=== PATIENT | female | born 1935 | race American Indian/Alaskan Native ===

== ENCOUNTER 2018-11-16 04:40 | Inpatient (IN) | payer MEDICARE ==
[2018-11-16] MEDS ORDERED: NORMODYNE IV ONE ×3 (07:01→07:48)
[2018-11-16 07:45] LABS: Basophils # (Auto) 0.1 K/mm3 (0.0-0.1); Basophils % (Auto) 0.9 % (0.0-1.8); Eosinophils % (Auto) 0.2 % (0.0-4.3); Hematocrit 32.7 % (30.3-42.9); Hemoglobin 11.1 gm/dl (10.1-14.3); Lymphocytes # (Auto) 2.1 K/mm3 (1.2-5.4); Lymphocytes % (Auto) 21.2 % (13.4-35.0); Mean Corpuscular HGB Conc 34 % (30-34); Mean Corpuscular Volume 91 fl (79-97); Monocytes # (Auto) 0.8 K/mm3 (0.0-0.8); Monocytes % (Auto) 7.6 % (0.0-7.3); Platelet Count 260 K/mm3 (140-440); Red Cell Distribution Width 14.8 % (13.2-15.2)
[2018-11-16 07:57] LABS: INR 0.95 (0.87-1.13)
[2018-11-16 07:58] LABS: Partial Thromboplastin Time 21.3 Sec. (24.2-36.6)
[2018-11-16 08:00] LABS: Calcium 9.1 mg/dL (8.4-10.2)
[2018-11-16 08:03] LABS: Alanine Aminotransferase 8 units/L (7-56); Albumin 3.8 g/dL (3.9-5)
[2018-11-16 08:08] LABS: Bilirubin,Direct < 0.2 mg/dL (0-0.2)
--- NOTE | 2018-11-16 08:21 | Emergency Department Report ---
ED General Adult HPI - General Chief complaint: Headache Stated complaint: HEADACHE/NECK/BACK PAIN Time Seen by Provider: 11/16/18 06:55 Source: EMS Mode of arrival: Stretcher Limitations: Other - History of Present Illness Initial comments: This is an 83-year-old female who states that her headache has now resolved at the time of my encounter. Apparently she was on antihypertensive medication in the past but it was discontinued. The patient is a poor historian. She does not complain of neck stiffness. She is very vague about the location and onset of the headache. Apparently was present this morning and EMS was called. She denied any focal weakness or numbness. She denied fever chills nausea vomiting or neck stiffness. -: unknown Location: head Radiation: non-radiation Associated Symptoms: denies other symptoms - Related Data Allergies Allergy/AdvReac Type Severity Reaction Status Date / Time No Known Allergies Allergy Unverified 01/28/15 07:33 ED Review of Systems ROS: Stated complaint: HEADACHE/NECK/BACK PAIN Other details as noted in HPI Comment: Unobtainable due to pts medical conditions (patients with dementia who thinks she is at home) ED Past Medical Hx - Past Medical History Previous Medical History?: Yes Hx Hypertension: Yes Hx CVA: Yes (2016) Hx Heart Attack/AMI: No Hx Liver Disease: No Hx Renal Disease: No Hx Headaches / Migraines: Yes Hx Seizures: No Hx Asthma: No - Surgical History Past Surgical History?: No - Social History Smoking Status: Unknown if ever smoked Substance Use Type: None ED Physical Exam - General Limitations: Other General appearance: alert, in no apparent distress - Head Head exam: Present: atraumatic, normocephalic - Eye Eye exam: Present: normal appearance, PERRL, EOMI. Absent: scleral icterus - ENT ENT exam: Present: mucous membranes moist - Neck Neck exam: Present: normal inspection. Absent: tenderness, meningismus - Respiratory Respiratory exam: Present: normal lung sounds bilaterally. Absent: respiratory distress - Cardiovascular Cardiovascular Exam: Present: regular rate, normal rhythm. Absent: systolic murmur, diastolic murmur, rubs, gallop - GI/Abdominal GI/Abdominal exam: Present: soft, normal bowel sounds. Absent: distended, tenderness, guarding, rebound, rigid - Extremities Exam Extremities exam: Present: normal inspection - Back Exam Back exam: Present: normal inspection - Neurological Exam Neurological exam: Present: alert, oriented X3, CN II-XII intact, normal gait. Absent: motor sensory deficit - Psychiatric Psychiatric exam: Present: normal affect, normal mood - Skin Skin exam: Present: warm, dry, intact, normal color. Absent: rash ED Course Vital Signs 11/16/18 11/16/18 11/16/18 05:16 05:30 05:46 Temperature Pulse Rate 103 H 84 88 Respiratory 13 19 19 Rate Blood Pressure 260/100 Blood Pressure [Left] O2 Sat by Pulse 99 99 99 Oximetry 11/16/18 11/16/18 11/16/18 06:00 06:04 06:15 Temperature 98.4 F Pulse Rate 92 H 89 99 H Respiratory 12 22 23 Rate Blood Pressure 229/105 229/105 Blood Pressure 229/105 [Left] O2 Sat by Pulse 99 99 99 Oximetry 11/16/18 11/16/18 11/16/18 06:31 06:45 07:00 Temperature Pulse Rate 97 H 91 H 98 H Respiratory 17 21 14 Rate Blood Pressure 229/105 229/105 220/115 Blood Pressure [Left] O2 Sat by Pulse 99 99 100 Oximetry 11/16/18 11/16/18 11/16/18 07:51 08:00 08:13 Temperature Pulse Rate 94 H 97 H 89 Respiratory 18 31 H Rate Blood Pressure 229/105 221/82 201/108 Blood Pressure [Left] O2 Sat by Pulse 98 97 Oximetry 11/16/18 08:15 Temperature 98.4 F Pulse Rate 90 Respiratory 13 Rate Blood Pressure 221/82 Blood Pressure [Left] O2 Sat by Pulse 98 Oximetry - Reevaluation(s) Reevaluation #1: Patient's blood pressure gradually improved with labetalol. She did not require a trip. She was admitted by Dr. Wisdom to the hospitalist service. 11/16/18 10:46 ED Medical Decision Making - Lab Data Result diagrams: 11/16/18 07:25 11/16/18 07:31 Laboratory Results - last 24 hr 11/16/18 11/16/18 11/16/18 07:25 07:31 07:31 WBC 10.0 RBC 3.60 L Hgb 11.1 Hct 32.7 MCV 91 MCH 31 MCHC 34 RDW 14.8 Plt Count 260 Lymph % (Auto) 21.2 [place] % (Auto) 7.6 H Eos % (Auto) 0.2 Baso % (Auto) 0.9 Lymph # 2.1 [place] # 0.8 Eos # 0.0 Baso # 0.1 Seg Neutrophils % 70.1 H Seg Neutrophils # 7.0 PT INR APTT Sodium 137 Potassium 4.2 Chloride 99.6 Carbon Dioxide 21 L Anion Gap 21 BUN 17 Creatinine 1.7 H Estimated GFR 35 BUN/Creatinine Ratio 10 Glucose 132 H Calcium 9.1 Total Bilirubin 0.60 Direct Bilirubin < 0.2 Indirect Bilirubin 0.4 AST 19 ALT 8 Alkaline Phosphatase 82 Troponin T < 0.010 NT-Pro-B Natriuret Pep 1252 H Total Protein 8.1 Albumin 3.8 L Albumin/Globulin Ratio 0.9 11/16/18 07:32 WBC RBC Hgb Hct MCV MCH MCHC RDW Plt Count Lymph % (Auto) [place] % (Auto) Eos % (Auto) Baso % (Auto) Lymph # [place] # Eos # Baso # Seg Neutrophils % Seg Neutrophils # PT 13.3 INR 0.95 APTT 21.3 L Sodium Potassium Chloride Carbon Dioxide Anion Gap BUN Creatinine Estimated GFR BUN/Creatinine Ratio Glucose Calcium Total Bilirubin Direct Bilirubin Indirect Bilirubin AST ALT Alkaline Phosphatase Troponin T NT-Pro-B Natriuret Pep Total Protein Albumin Albumin/Globulin Ratio - EKG Data -: EKG Interpreted by Me EKG shows normal: sinus rhythm, axis, intervals, QRS complexes, ST-T waves Rate: normal - EKG Data Interpretation: other (motion artifact and nonspecific changes) - Radiology Data interpreted by me: Chest x-ray borderline cardiomegaly with some right hilar prominence IMPRESSION: Age related volume loss with chronic ischemic white matter disease changes. No acute stroke or hemorrhage. Remote lacunar infarcts in the deep white matter of the left frontal lobe. Very mild mucosal thickening in the ethmoid air cells. Critical care attestation.: If time is entered above; I have spent that time in minutes in the direct care of this critically ill patient, excluding procedure time. ED Disposition Clinical Impression: Accelerated hypertension Cephalalgia Qualifiers: Headache type: unspecified Headache chronicity pattern: acute headache Intractability: not intractable Qualified Code(s): R51 - Headache Disposition: OP ADMIT IP TO THIS HOSP Is pt being admited?: Yes Does the pt Need Aspirin: Yes Condition: Stable Time of Disposition: 10:49
[2018-11-16 08:43] LABS: Erythrocyte Sedimentation Rate 53 mm/Hr (0-20)
--- NOTE | 2018-11-16 08:49 | Cat Scan Report ---
PROCEDURE: CT HEAD/BRAIN WO CON TECHNIQUE: Computerized tomography of the head was performed without contrast material. CT DOSE LENGTH PRODUCT: mGycm HISTORY: Headache COMPARISONS: None . FINDINGS: Skull and scalp: Normal . Paranasal sinuses: There is patchy mucosal thickening in the ethmoid air cells. . Ventricles and subarachnoid spaces: Normal . Cerebrum: No evidence of hemorrhage, acute infarction or mass . There is diminished attenuation of t he periventricular white matter. There are remote lacunar infarcts in the deep white matter of the le ft frontal lobe. There are benign basal ganglia calcifications. Cerebellum and brainstem: No evidence of hemorrhage, acute infarction or mass . Vasculature: Normal . Other: None . ASPECTS: 10 IMPRESSION: Age related volume loss with chronic ischemic white matter disease changes. No acute stroke or hemorr celestina. Remote lacunar infarcts in the deep white matter of the left frontal lobe. Very mild mucosal thickening in the ethmoid air cells. This document is electronically signed by Jae Fang MD., November 16 2018 07:43:24 AM ET
--- NOTE | 2018-11-16 09:41 | History and Physical Report ---
History of Present Illness Date of examination: 11/16/18 Date of admission: 11/16/18 09:05 Chief complaint: Headache History of present illness: Patient is a 83 yo woman with a history of CVA in 2016, headaches, hypertension and arthritis who presents to [facility] ED with moderated to frontal constants nonradiating sharp headaches without aggravating or relieving factors. She was found to have a SBP over 220. She is a poor historian and pulled the blanket over her head. She denies cp, sob, fever or chills. She reports bilateral shoulder pains but gave no other specifics PMH: as hpi, also migraines PSH: she denies but she did have a colonoscopy after reviewing old records==01/28/15 (1. colon polyp 2. diverticulosis coli 3. internal hemorrhois) s/p Colonoscopy with hot biopsy polypectomy by Dr. Mark Narayan SH: she denies tob/etoh/illegal drug use FH: hypertension ROS: Constitutional: denies: fever ENT: denies: throat or neck pain Respiratory: denies: cough, shortness of breath Cardiovascular: denies: chest pain Endocrine: denies unexplained weight loss or gain Gastrointestinal: denies: abdominal pain, nausea Genitourinary: denies: dysuria Rectal: denies no incontinence, no bleeding, no itching, no discharge Musculoskeletal: denies swelling, +myaglia, no muscle weakness Skin: denies: rash Neurological: + headache Hematological/Lymphatic: denies: easy bleeding or easy bruising Allergic/Immunologic: no urticaria, no allergic rhinitis, no anaphylaxis Psych: denies sadness or hopelessness, SI/HI Medications and Allergies Allergies Allergy/AdvReac Type Severity Reaction Status Date / Time No Known Allergies Allergy Unverified 01/28/15 07:33 Exam - Physical Exam Narrative exam: Gen: WDWN, NAD, Awake, Alert, Orientated x 3 HEENT: NCAT, EOMI, PERRL, OP Clear Neck: supple, no adenopathy, no thyromegaly, no JVD CVS/Heart: RRR, normal S1S2, pulses present bilaterally Chest/Lungs: CTA B, Symmetrical chest expansion, good air entry bilaterally GI/Abdomen: soft, NTND, good bowel sounds, no guarding or rebound /Bladder: no suprapubic tenderness, no CVA or paraspinal tenderness Extermity/Skin: no c/c/e, no obvious rash MSK: FROM x 4 Neuro: CN 2-12 grossly intact, no new focal deficits Psych: calm - Constitutional Vitals: Temp Pulse Resp BP Pulse Ox 98.4 F 90 13 221/82 98 11/16/18 08:15 11/16/18 08:15 11/16/18 08:15 11/16/18 08:15 11/16/18 08:15 Results - Labs CBC & Chem 7: 11/16/18 07:25 11/16/18 07:31 Labs: Abnormal lab results 11/16/18 11/16/18 11/16/18 Range/Units 07:25 07:31 07:31 RBC 3.60 L (3.65-5.03) M/mm3 [place] % (Auto) 7.6 H (0.0-7.3) % Seg Neutrophils % 70.1 H (40.0-70.0) % APTT (24.2-36.6) Sec. Carbon Dioxide 21 L (22-30) mmol/L Creatinine 1.7 H (0.7-1.2) mg/dL Glucose 132 H (65-100) mg/dL NT-Pro-B Natriuret Pep 1252 H (0-900) pg/mL Albumin 3.8 L (3.9-5) g/dL 11/16/18 Range/Units 07:32 RBC (3.65-5.03) M/mm3 [place] % (Auto) (0.0-7.3) % Seg Neutrophils % (40.0-70.0) % APTT 21.3 L (24.2-36.6) Sec. Carbon Dioxide (22-30) mmol/L Creatinine (0.7-1.2) mg/dL Glucose (65-100) mg/dL NT-Pro-B Natriuret Pep (0-900) pg/mL Albumin (3.9-5) g/dL Assessment and Plan Patient is a 83 yo woman with a history of CVA in 2016, headaches, hypertension and arthritis who presents to [facility] ED with moderated to frontal constants nonradiating sharp headaches without aggravating or relieving factors. She was found to have a SBP over 220. She is a poor historian and pulled the blanket over her head. She denies cp, sob, fever or chills. She reports bilateral should er pains but gave no other specifics. * CT head without contrast IMPRESSION: Age related volume loss with chronic ischemic white matter disease changes. No acute stroke or hemorrhage. Remote lacunar infarcts in the deep white matter of the left frontal lobe. Very mild mucosal thickening in the ethmoid air cells. -Malignant hypertension: treat with iv antihypertensive, after school counselor on adherence -Headache, possible Migraine flare: Consult neurology, treat with Ibuprofen x 1 -H/o CVA: treat with ASA, statin and get lipid panel -OA: treat with Tylenol
[2018-11-16] MEDS ORDERED: TYLENOL PO PRN (09:47)
[2018-11-16] MEDS ORDERED: NORCO 10/325 PO PRN (09:47)
[2018-11-16] MEDS ORDERED: APRESOLINE IV PRN (09:47)
[2018-11-16] MEDS ORDERED: NORMODYNE IV PRN (09:47)
[2018-11-16] MEDS ORDERED: ZOFRAN IV PRN (09:47)
[2018-11-16] MEDS ORDERED: MORPHINE IV PRN (09:47)
[2018-11-16] MEDS ORDERED: AMBIEN PO PRN (09:47)
[2018-11-16] MEDS ORDERED: IBUPROFEN PO ONE (10:00)
[2018-11-16] MEDS ORDERED: ASPIRIN ONE (11:39)
[2018-11-16] MEDS ORDERED: PROTONIX PO ONE (11:39)
[2018-11-16] MEDS ORDERED: ZESTRIL ONE (11:39)
[2018-11-16] MEDS ORDERED: IBUPROFEN ONE (11:39)
[2018-11-16] MEDS ORDERED: NORVASC ONE (11:40)
[2018-11-16] MEDS ORDERED: APRESOLINE ONE (11:40)
[2018-11-16] MEDS: ASPIRIN PO SCH (11:43)
[2018-11-16] MEDS: NORVASC PO SCH (11:43)
[2018-11-16] MEDS: ZESTRIL PO SCH (11:44)
[2018-11-16] MEDS: PROTONIX PO SCH (11:44)
--- NOTE | 2018-11-16 11:49 | XRay Report ---
PROCEDURE: XR CHEST 1V AP TECHNIQUE: Chest, portable HISTORY: hypertension COMPARISON: None FINDINGS: The heart size is borderline enlarged. There is no pulmonary vascular congestion seen. Lungs are clear. There is no pleural effusion seen. There is no pneumothorax seen. IMPRESSION: No acute abnormality identified. This document is electronically signed by Rosana Bowles MD., November 16 2018 09:51:48 AM ET
--- NOTE | 2018-11-16 13:58 | Progress Note ---
Subjective Date of service: 11/16/18 Interval history: patient with devere headaches and HTN she is up and ambulatory headaches are chronic problems plan check to exclude temporal arteriitis see prir w/u will follow up Thanks Objective - Vital Sign Vital Signs - 12hr 11/16/18 11/16/18 11/16/18 05:16 05:30 05:46 Temperature Pulse Rate 103 H 84 88 Respiratory 13 19 19 Rate Blood Pressure 260/100 Blood Pressure [Left] O2 Sat by Pulse 99 99 99 Oximetry 11/16/18 11/16/18 11/16/18 06:00 06:04 06:15 Temperature 98.4 F Pulse Rate 92 H 89 99 H Respiratory 12 22 23 Rate Blood Pressure 229/105 229/105 Blood Pressure 229/105 [Left] O2 Sat by Pulse 99 99 99 Oximetry 11/16/18 11/16/18 11/16/18 06:31 06:45 07:00 Temperature Pulse Rate 97 H 91 H 98 H Respiratory 17 21 14 Rate Blood Pressure 229/105 229/105 220/115 Blood Pressure [Left] O2 Sat by Pulse 99 99 100 Oximetry 11/16/18 11/16/18 11/16/18 07:51 08:00 08:13 Temperature Pulse Rate 94 H 97 H 89 Respiratory 18 31 H Rate Blood Pressure 229/105 221/82 201/108 Blood Pressure [Left] O2 Sat by Pulse 98 97 Oximetry 11/16/18 11/16/18 11/16/18 08:15 08:33 08:45 Temperature 98.4 F Pulse Rate 90 87 Respiratory 13 20 Rate Blood Pressure 221/82 141/106 209/89 Blood Pressure [Left] O2 Sat by Pulse 98 96 100 Oximetry 11/16/18 11/16/18 11/16/18 09:00 09:15 09:31 Temperature Pulse Rate 86 87 89 Respiratory 22 23 13 Rate Blood Pressure 215/85 209/89 209/89 Blood Pressure [Left] O2 Sat by Pulse 99 98 98 Oximetry 11/16/18 11/16/18 11/16/18 09:45 10:01 10:16 Temperature Pulse Rate 88 87 Respiratory 19 20 Rate Blood Pressure 215/85 224/77 224/77 Blood Pressure [Left] O2 Sat by Pulse 97 97 85 Oximetry 11/16/18 11/16/18 11/16/18 10:31 10:45 11:00 Temperature Pulse Rate 94 H 92 H 93 H Respiratory 26 H 22 22 Rate Blood Pressure 194/159 194/159 230/94 Blood Pressure [Left] O2 Sat by Pulse 91 99 Oximetry 11/16/18 11/16/18 11/16/18 11:15 11:21 11:43 Temperature 98 F Pulse Rate 92 H 91 H 92 H Respiratory 21 18 16 Rate Blood Pressure 230/94 230/94 Blood Pressure 229/94 [Left] O2 Sat by Pulse 98 98 Oximetry 11/16/18 11:44 Temperature Pulse Rate 92 H Respiratory Rate Blood Pressure 230/94 Blood Pressure [Left] O2 Sat by Pulse Oximetry - Laboratory Findings CBC and BMP: 11/16/18 07:25 11/16/18 07:31 Abnormal Lab Findings: Abnormal Labs 11/16/18 11/16/18 11/16/18 07:25 07:31 07:31 RBC 3.60 L [place] % (Auto) 7.6 H Seg Neutrophils % 70.1 H APTT Carbon Dioxide 21 L Creatinine 1.7 H Glucose 132 H NT-Pro-B Natriuret Pep 1252 H Albumin 3.8 L 11/16/18 07:32 RBC [place] % (Auto) Seg Neutrophils % APTT 21.3 L Carbon Dioxide Creatinine Glucose NT-Pro-B Natriuret Pep Albumin
[2018-11-17 06:41] LABS: Hematocrit 32.2 % (30.3-42.9); Hemoglobin 10.8 gm/dl (10.1-14.3); Mean Corpuscular HGB Conc 33 % (30-34); Mean Corpuscular Volume 91 fl (79-97); Platelet Count 263 K/mm3 (140-440); Red Blood Count 3.54 M/mm3 (3.65-5.03)
[2018-11-17 06:52] LABS: Calcium 9.3 mg/dL (8.4-10.2); Chol/HDL Ratio 2.9 %
--- NOTE | 2018-11-17 09:59 | Progress Note ---
Assessment and Plan Assessment and plan: Patient is a 83 yo woman with a history of CVA in 2016, headaches, hypertension and arthritis who presents to [facility] ED with moderated to frontal constants nonradiating sharp headaches without aggravating or relieving factors. She was found to have a SBP over 220. She is a poor historian and pulled the blanket over her head. She denies cp, sob, fever or chills. She reports bilateral shoulder pains but gave no other specifics. * CT head without contrast IMPRESSION: Age related volume loss with chronic i schemic white matter disease changes. No acute stroke or hemorrhage. Remote lacunar infarcts in the deep white matter of the left frontal lobe. Very mild mucosal thickening in the ethmoid air cells. -Malignant hypertension: treat with iv antihypertensive, prevocational/rehabilitation counselor on adherence -Headache, possible Migraine flare: Consult neurology, treated with Ibuprofen x 1 -H/o CVA: treat with ASA, statin and get lipid panel -OA: treat with Tylenol -Disposition: continue inpatient care, ready to discharge but patient states that she has been put out and she can't go back to her daughter's home and I called Case management x [phone] no answer and I called Intelligence Research Specialist. History Interval history: Patient was seen and examined. Follow-up on current diagnosis of uncontrolled hypertension. Overnight uneventful. Patient denies any chest pain, shortness breath, nausea/vomiting or severe headaches. Imaging, nursing note, chart, labs and old chart reviewed. Discussed with patient. Hospitalist Physical - Physical exam Narrative exam: Gen: WDWN, NAD, Awake, Alert, Orientated x 3 HEENT: NCAT, EOMI, PERRL, OP Clear Neck: supple, no adenopathy, no thyromegaly, no JVD CVS/Heart: RRR, normal S1S2, pulses present bilaterally Chest/Lungs: CTA B, Symmetrical chest expansion, good air entry bilaterally GI/Abdomen: soft, NTND, good bowel sounds, no guarding or rebound /Bladder: no suprapubic tenderness, no CVA or paraspinal tenderness Extermity/Skin: no c/c/e, no obvious rash MSK: FROM x 4 Neuro: CN 2-12 grossly intact, no new focal deficits Psych: calm - Constitutional Vitals: Temp Pulse Resp BP Pulse Ox 98.4 F 82 16 150/61 90 11/17/18 07:41 11/17/18 07:41 11/17/18 07:41 11/17/18 07:41 11/17/18 07:41 Results - Labs CBC & Chem 7: 11/17/18 04:19 11/17/18 04:19 Labs: Laboratory Last Values WBC 9.9 K/mm3 (4.5-11.0) 11/17/18 04:19 RBC 3.54 M/mm3 (3.65-5.03) L 11/17/18 04:19 Hgb 10.8 gm/dl (10.1-14.3) 11/17/18 04:19 Hct 32.2 % (30.3-42.9) 11/17/18 04:19 MCV 91 fl (79-97) 11/17/18 04:19 MCH 30 pg (28-32) 11/17/18 04:19 MCHC 33 % (30-34) 11/17/18 04:19 RDW 15.0 % (13.2-15.2) 11/17/18 04:19 Plt Count 263 K/mm3 (140-440) 11/17/18 04:19 Lymph % (Auto) 21.2 % (13.4-35.0) 11/16/18 07:25 [place] % (Auto) 7.6 % (0.0-7.3) H 11/16/18 07:25 Eos % (Auto) 0.2 % (0.0-4.3) 11/16/18 07:25 Baso % (Auto) 0.9 % (0.0-1.8) 11/16/18 07:25 Lymph # 2.1 K/mm3 (1.2-5.4) 11/16/18 07:25 [place] # 0.8 K/mm3 (0.0-0.8) 11/16/18 07:25 Eos # 0.0 K/mm3 (0.0-0.4) 11/16/18 07:25 Baso # 0.1 K/mm3 (0.0-0.1) 11/16/18 07:25 Seg Neutrophils % 70.1 % (40.0-70.0) H 11/16/18 07:25 Seg Neutrophils # 7.0 K/mm3 (1.8-7.7) 11/16/18 07:25 ESR 8 mm/Hr (0-20) 11/16/18 14:11 PT 13.3 Sec. (12.2-14.9) 11/16/18 07:32 INR 0.95 (0.87-1.13) 11/16/18 07:32 APTT 21.3 Sec. (24.2-36.6) L 11/16/18 07:32 Sodium 138 mmol/L (137-145) 11/17/18 04:19 Potassium 3.5 mmol/L (3.6-5.0) L 11/17/18 04:19 Chloride 98.7 mmol/L (98-107) 11/17/18 04:19 Carbon Dioxide 22 mmol/L (22-30) 11/17/18 04:19 Anion Gap 21 mmol/L 11/17/18 04:19 BUN 23 mg/dL (7-17) H 11/17/18 04:19 Creatinine 2.3 mg/dL (0.7-1.2) H 11/17/18 04:19 Estimated GFR 25 ml/min 11/17/18 04:19 BUN/Creatinine Ratio 10 % 11/17/18 04:19 Glucose 109 mg/dL (65-100) H 11/17/18 04:19 Calcium 9.3 mg/dL (8.4-10.2) 11/17/18 04:19 Total Bilirubin 0.60 mg/dL (0.1-1.2) 11/16/18 07:31 Direct Bilirubin < 0.2 mg/dL (0-0.2) 11/16/18 07:31 Indirect Bilirubin 0.4 mg/dL 11/16/18 07:31 AST 19 units/L (5-40) 11/16/18 07:31 ALT 8 units/L (7-56) 11/16/18 07:31 Alkaline Phosphatase 82 units/L (35-129) 11/16/18 07:31 Troponin T < 0.010 ng/mL (0.00-0.029) 11/16/18 07:31 NT-Pro-B Natriuret Pep 1252 pg/mL (0-900) H 11/16/18 07:31 Total Protein 8.1 g/dL (6.3-8.2) 11/16/18 07:31 Albumin 3.8 g/dL (3.9-5) L 11/16/18 07:31 Albumin/Globulin Ratio 0.9 % 11/16/18 07:31 Triglycerides 68 mg/dL (2-149) 11/17/18 04:19 Cholesterol 145 mg/dL (50-199) 11/17/18 04:19 LDL Cholesterol Direct 87 mg/dL (50-130) 11/17/18 04:19 HDL Cholesterol 50 mg/dL (40-59) 11/17/18 04:19 Cholesterol/HDL Ratio 2.90 % 11/17/18 04:19 TSH 3.820 mlU/mL (0.270-4.200) 11/17/18 04:19
[2018-11-17] MEDS: ZESTRIL PO SCH (10:00)
--- NOTE | 2018-11-17 10:13 | Discharge Summary ---
Providers - Providers Date of Admission: 11/16/18 09:05 Date of discharge: 11/18/18 Attending physician: UCHE FREIRE 11/16/18 09:45 Consult to Physician [CONS] Routine Comment: Consulting Provider: GRACE GIBSON Physician Instructions: Reason For Exam: Headaches 11/17/18 10:08 Consult to Case Management [CONS] Routine Services Needed at Discharge: Learning Manager Additional Physician Instructions: Primary care physician: BRUCE SAUCEDO Hospitalization Condition: Stable Hospital course: Patient is a 83 yo woman with a history of CVA in 2016, headaches, hypertension and arthritis who presents to [facility] ED with moderated to frontal constants nonradiating sharp headaches without aggravating or relieving factors. She was found to have a SBP over 220. She is a poor historian and pulled the blanket over her head. She denies cp, sob, fever or chills. She reports bilateral shoulder pains but gave no other specifics. * CT head without contrast IMPRESSION: Age related volume loss with chronic ischemic white matter disease changes. No acute stroke or hemorrhage. Remote lacunar infarcts in the deep white matter of the left frontal lobe. Very mild mucosal thickening in the ethmoid air cells. -Malignant hypertension: treat with iv antihypertensive, licensed mental health counselor on adherence -Headache, possible Migraine flare: Consult neurology, treated with Ibuprofen x 1 -H/o CVA: treat with ASA, statin and get lipid panel -OA: treat with Tylenol Disposition: DC-01 TO HOME OR SELFCARE Time spent for discharge: 36 minutes Core Measure Documentation - Palliative Care Palliative Care/ Comfort Measures: Not Applicable - Core Measures Any of the following diagnoses?: none - VTE Discharge Requirements Deep Vein Thrombosis/Pulmonary Embolism Present on Admission: No Has pt received <5 days of overlap therapy or INR<2.0: No Anticoagulant overlap therapy prescribed at discharge: No Contraindication No Overlap Therapy order at DC: Not Indicated Exam - Physical Exam Narrative exam: Gen: WDWN, NAD, Awake, Alert, Orientated x 3 HEENT: NCAT, EOMI, PERRL, OP Clear Neck: supple, no adenopathy, no thyromegaly, no JVD CVS/Heart: RRR, normal S1S2, pulses present bilaterally Chest/Lungs: CTA B, Symmetrical chest expansion, good air entry bilaterally GI/Abdomen: soft, NTND, good bowel sounds, no guarding or rebound /Bladder: no suprapubic tenderness, no CVA or paraspinal tenderness Extermity/Skin: no c/c/e, no obvious rash MSK: FROM x 4 Neuro: CN 2-12 grossly intact, no new focal deficits Psych: calm - Constitutional Vitals: Temp Pulse Resp BP Pulse Ox 98.4 F 82 16 150/61 90 11/17/18 07:41 11/17/18 07:41 11/17/18 07:41 11/17/18 07:41 11/17/18 07:41 Plan Activity: other (no strenous activity) Diet: low salt Special Instructions: record daily BP diary Follow up with: BRUCE SAUCEDO MD [Primary Care Provider] - 3-5 Days Prescriptions: amLODIPine [Norvasc] 10 mg PO QDAY #30 tablet Aspirin [Aspirin EC] 81 mg PO QDAY #30 tab Pantoprazole [Protonix TAB] 40 mg PO QDAY #30 tablet
--- NOTE | 2018-11-17 10:24 | Progress Note ---
Subjective Date of service: 11/17/18 Interval history: OK to discharge ESR is normal for age and being female the headaches are related to HTN and Renal FAILURE Objective - Vital Sign Vital Signs - 12hr 11/17/18 11/17/18 11/17/18 02:03 07:13 07:41 Temperature 98.3 F 98.1 F 98.4 F Pulse Rate 87 90 82 Respiratory 20 18 16 Rate Blood Pressure 171/58 168/61 150/61 O2 Sat by Pulse 96 98 90 Oximetry - Laboratory Findings CBC and BMP: 11/17/18 04:19 11/17/18 04:19 Abnormal Lab Findings: Abnormal Labs 11/16/18 11/16/18 11/16/18 07:25 07:31 07:31 RBC 3.60 L [place] % (Auto) 7.6 H Seg Neutrophils % 70.1 H APTT Potassium Carbon Dioxide 21 L BUN Creatinine 1.7 H Glucose 132 H NT-Pro-B Natriuret Pep 1252 H Albumin 3.8 L 11/16/18 11/17/18 11/17/18 07:32 04:19 04:19 RBC 3.54 L [place] % (Auto) Seg Neutrophils % APTT 21.3 L Potassium 3.5 L Carbon Dioxide BUN 23 H Creatinine 2.3 H Glucose 109 H NT-Pro-B Natriuret Pep Albumin
[2018-11-17] MEDS: PROTONIX PO SCH (10:56)
[2018-11-17] MEDS: ASPIRIN PO SCH (10:56)
[2018-11-17] MEDS: NORVASC PO SCH (10:57)
[2018-11-17] MEDS: HEPARIN SUB-Q SCH ×3 (10:57→22:55)
[2018-11-17] MEDS ORDERED: AFLURIA QUAD 2018-2019 SYRINGE IM ONE (12:00)
[2018-11-17] MEDS ORDERED: PNEUMOVAX 23 IM ONE (12:00)
[2018-11-17 12:28] LABS: Bacteria,Urine 1+ /HPF (Negative); Bilirubin,Urine NEG (Negative); Blood,Urine NEG (Negative); Color,Urine Yellow (Yellow); Hyaline Casts,Urine 1 /LPF; Mucus,Urine FEW /HPF; Protein,Urine <15 mg/dL mg/dL (Negative)
[2018-11-17] MEDS ORDERED: NACL 0.9% 1000 ML 1,000 ML IV ONE (13:59)
--- NOTE | 2018-11-17 14:05 | Consultation ---
History of Present Illness - Reason for Consult Consult date: 11/17/18 acute renal failure - History of Present Illness patient is a 83 year old female with HTN was admitted for worsening SHARPE, she was doing to have severely elevated BP and was started on IV BP meds, CT head was negative for acute process, she was evaluated by neurology and etiology of her SHARPE likely related to BP, this morning she was found to have worsening Cr and renal consult was requested Past History Past Medical History: hypertension Medications and Allergies Allergies Allergy/AdvReac Type Severity Reaction Status Date / Time No Known Allergies Allergy Unverified 01/28/15 07:33 Home Medications Medication Instructions Recorded Confirmed Last Taken Type Acetaminophen [Acetaminophen TAB] 650 mg PO Q6H PRN #15 tablet 11/17/18 Unknown Rx Aspirin [Aspirin EC] 81 mg PO QDAY #30 tab 11/17/18 Unknown Rx Pantoprazole [Protonix TAB] 40 mg PO QDAY #30 tablet 11/17/18 Unknown Rx amLODIPine [Norvasc] 10 mg PO QDAY #30 tablet 11/17/18 Unknown Rx Active Meds: Active Medications Acetaminophen (Tylenol) 650 mg PO Q6H PRN PRN Reason: Non Cardiac Pain or Temp>100.5 Acetaminophen/Hydrocodone Bitart ([place] 10/325) 1 each PO Q4H PRN PRN Reason: Pain , Severe (7-10) Amlodipine Besylate (Norvasc) 10 mg PO QDAY [facility] Last Admin: 11/17/18 10:57 Dose: 10 mg Documented by: Aspirin (Aspirin) 325 mg PO QDAY [facility] Last Admin: 11/17/18 10:56 Dose: 325 mg Documented by: Atorvastatin Calcium (Lipitor) 40 mg PO QHS [facility] Last Admin: 11/16/18 22:42 Dose: 40 mg Documented by: Heparin Sodium (Porcine) (Heparin) 5,000 unit SUB-Q Q12HR [facility] Last Admin: 11/17/18 13:08 Dose: Not Given Documented by: Hydralazine HCl (Apresoline) 10 mg IV Q4HR PRN PRN Reason: Blood Pressure Last Admin: 11/16/18 11:44 Dose: 10 mg Documented by: Sodium Chloride (Nacl 0.9% 1000 Ml) 1,000 mls @ 50 mls/hr IV ONCE ONE Stop: 11/18/18 09:58 Labetalol HCl (Normodyne) 10 mg IV Q4H PRN PRN Reason: Blood Pressure Morphine Sulfate (Morphine) 2 mg IV Q4H PRN PRN Reason: Pain , Severe (7-10) Ondansetron HCl (Zofran) 4 mg IV Q4H PRN PRN Reason: Nausea And Vomiting Pantoprazole Sodium (Protonix) 40 mg PO QDAY ROBE Last Admin: 11/17/18 10:56 Dose: 40 mg Documented by: Zolpidem Tartrate (Ambien) 5 mg PO QHS PRN PRN Reason: Sleep Review of Systems All systems: negative (SHARPE) Exam - Vital Signs Vital signs: Vital Signs Pulse Resp Pulse Ox 103 H 13 99 11/16/18 05:16 11/16/18 05:16 11/16/18 05:16 - General Appearance General appearance: well-developed, well-nourished, appears stated age EENT: ATNC, PERRL, mucous membranes moist Neck: Present: neck supple Respiratory: Clear to Ascultation Heart: regular, S1S2 Gastrointestinal: Present: normoactive bowel sounds Integumentary: no rash, warm and dry Neurologic: no focal deficit, no asterixis, alert and oriented x3 Musculoskeletal: Present: deferred, other (no edema in BLE) Psychiatric: mood/affect appropriate, cooperative Results - Lab Results 11/17/18 04:19 11/17/18 04:19 Most recent lab results Calcium 9.3 mg/dL (8.4-10.2) 11/17/18 04:19 Assessment and Plan TON, possibly due to NSAIDs and ACEI,c cannot r/o endovascular injury secondary to hypertension emergency HTN headaches - agree with holding ACEI - will start gentle IVF NS 50 cc/h - urine studies ordered - if improvement in Cr tomorrow can be discharged and she will be followed in my office
--- NOTE | 2018-11-17 15:03 | Ultrasound Report ---
PROCEDURE: US RENAL BILAT TECHNIQUE: Longitudinal and transverse grayscale sonographic images of the kidneys HISTORY: ARF COMPARISONS: None FINDINGS: Right kidney measures 6.8 cm and contains a lower pole 2.4 x 2.4 cm cyst. Cortex measures 0.9 cm. Left kidney measures 8.5 cm with 1.7 cm cortical thickness. Both kidneys are echogenic with relatively poor corticomedullary junction differentiation. Left is mo re severe than the right. No hydronephrosis. Urinary bladder is not assessed. IMPRESSION: Echogenic small kidneys bilaterally most compatible with medical renal disease. No stone, hydronephro sis, or mass. Simple right lower pole cortical exophytic cyst. Bladder is not assessed.. This document is electronically signed by Lorie Avila MD., November 17 2018 03:01:38 PM ET
[2018-11-17 18:08] LABS: Bilirubin,Urine NEG (Negative); Blood,Urine SM (Negative); Color,Urine Yellow (Yellow); Protein,Urine <15 mg/dL mg/dL (Negative)
[2018-11-17 18:22] LABS: Creatinine,Urine 139.1 mg/dL (0.1-20.0); Protein/Creatinine Ratio,Urine 0.12
--- NOTE | 2018-11-17 21:19 | Consultation ---
HISTORY OF PRESENT ILLNESS: This is an 83-year-old female who is being asked to be seen for evaluation of headaches, vertigo, and generalized weakness. The patient has a long history of hypertension, had been missing her medication recently. By her admission, she was not taking medication prior to admission. Blood pressure became elevated, she got dizzy, had pain across her forehead, bilateral, nonpulsatile, nonthrobbing and not associated with any vertigo or loss of vision. These headaches have been present previously when she has had elevated blood pressure. She denies having had a stroke or any other symptoms of a similar nature in the past. PAST MEDICAL HISTORY: Not significant for any strokes. She does have a prior medical history of hypertension. SOCIAL HISTORY: Denies smoking, denies drinking. The patient initially was assessed. Nurses were present in the room, stated that she was up and ambulating without difficulty. RADIOLOGICAL DATA: Review of her CT scan of the head shows old area of calcification bilaterally in the globus pallidus, which has a punctate appearance to it, somewhat characteristic for degenerative changes and the remainder of the ventricular system is normal for her age. 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 There are scattered white matter changes as well. They are suggestive lacunar disease. PHYSICAL EXAMINATION: NEUROLOGIC: The patient reveals him to be alert. She is up walking. Cranial nerves are intact 2-12. Reflexes symmetrical. Gait normal. No cerebellar signs are present. Palpation of the head and neck and scalp is unremarkable. No evidence of any skin eruptions are present over the head, neck, scalp. IMPRESSION: Headaches related to hypertension, evidence of hypertensive lacunar disease on the CT scan, which is very minimal and quite expected at her current age. The patient's headaches are not at all characteristic of temporal arteritis. Sedimentation rate that I have obtained is 53, which is normal for her age and sex. I feel that blood pressure control is appropriate. She should also receive risk factor reduction of potential for stroke with blood pressure control. Recommendation low dose aspirin and statin. The patient is advised to follow up with her family medical doctor. JOB# [id number] LOI/NTS
[2018-11-18 05:37] LABS: Basophils # (Auto) 0.1 K/mm3 (0.0-0.1); Basophils % (Auto) 0.6 % (0.0-1.8); Eosinophils % (Auto) 0.4 % (0.0-4.3); Hematocrit 28.5 % (30.3-42.9); Hemoglobin 9.7 gm/dl (10.1-14.3); Lymphocytes # (Auto) 1.8 K/mm3 (1.2-5.4); Lymphocytes % (Auto) 21.6 % (13.4-35.0); Mean Corpuscular HGB Conc 34 % (30-34); Mean Corpuscular Volume 90 fl (79-97); Monocytes # (Auto) 0.7 K/mm3 (0.0-0.8); Monocytes % (Auto) 8.8 % (0.0-7.3); Platelet Count 242 K/mm3 (140-440); Red Blood Count 3.19 M/mm3 (3.65-5.03); Red Cell Distribution Width 15.1 % (13.2-15.2)
[2018-11-18 05:57] LABS: Calcium 8.8 mg/dL (8.4-10.2)
[2018-11-18 07:43] LABS: Calcium 8.8 mg/dL (8.4-10.2)
--- NOTE | 2018-11-18 08:07 | Progress Note ---
Subjective Date of service: 11/18/18 Interval history: Hmct low and BP still up slightly meds are being ordered headaches could as well be renal related as creatinine is increased Objective - Vital Sign Vital Signs - 12hr 11/17/18 11/17/18 11/17/18 22:00 22:54 23:54 Temperature Pulse Rate 92 H Respiratory 20 20 20 Rate Blood Pressure O2 Sat by Pulse 95 Oximetry 11/18/18 01:58 Temperature 98.6 F Pulse Rate Respiratory 20 Rate Blood Pressure 162/59 O2 Sat by Pulse Oximetry - Laboratory Findings CBC and BMP: 11/18/18 05:12 11/18/18 06:51 Abnormal Lab Findings: Abnormal Labs 11/16/18 11/16/18 11/16/18 07:25 07:31 07:31 RBC 3.60 L Hgb Hct [place] % (Auto) 7.6 H Seg Neutrophils % 70.1 H APTT Potassium Carbon Dioxide 21 L BUN Creatinine 1.7 H Glucose 132 H NT-Pro-B Natriuret Pep 1252 H Albumin 3.8 L Urine WBC (Auto) Urine Creatinine Urine Total Protein 11/16/18 11/16/18 11/17/18 07:32 Unknown 04:19 RBC 3.54 L Hgb Hct [place] % (Auto) Seg Neutrophils % APTT 21.3 L Potassium Carbon Dioxide BUN Creatinine Glucose NT-Pro-B Natriuret Pep Albumin Urine WBC (Auto) 8.0 H Urine Creatinine Urine Total Protein 11/17/18 11/17/18 11/18/18 04:19 17:45 05:12 RBC 3.19 L Hgb 9.7 L Hct 28.5 L [place] % (Auto) 8.8 H Seg Neutrophils % APTT Potassium 3.5 L Carbon Dioxide BUN 23 H Creatinine 2.3 H Glucose 109 H NT-Pro-B Natriuret Pep Albumin Urine WBC (Auto) Urine Creatinine 139.1 H Urine Total Protein 16 H 11/18/18 11/18/18 05:12 06:51 RBC Hgb Hct [place] % (Auto) Seg Neutrophils % APTT Potassium Carbon Dioxide BUN 27 H 26 H Creatinine 2.2 H 2.2 H Glucose 104 H NT-Pro-B Natriuret Pep Albumin Urine WBC (Auto) Urine Creatinine Urine Total Protein
[2018-11-18] MEDS: NORVASC PO SCH (09:06)
[2018-11-18] MEDS: ASPIRIN PO SCH (09:06)
[2018-11-18] MEDS: HEPARIN SUB-Q SCH (09:07)
[2018-11-18] MEDS: PROTONIX PO SCH (09:07)
--- NOTE | 2018-11-18 11:58 | Progress Note ---
Assessment and Plan TON, possibly due to NSAIDs and ACEI,c cannot r/o endovascular injury secondary to hypertension emergency HTN headaches - stable Cr but not back to baseline yet - Ok to be discharged from renal standpoint, cont to hold ACEI on discharge, to be followed in my office with labs within 1-2 weeks Sivakumar Singh MD [phone] Subjective Date of service: 11/18/18 Principal diagnosis: acute renal failure Interval history: SHARPE resolved, ready to go home Objective - Vital Signs Vital signs: Vital Signs - 12hr 11/18/18 11/18/18 11/18/18 01:58 08:14 09:06 Temperature 98.6 F 98.5 F Pulse Rate 93 H 98 H Pulse Rate [ Apical] Respiratory 20 18 Rate Blood Pressure 162/59 186/61 179/72 O2 Sat by Pulse 97 Oximetry 11/18/18 10:00 Temperature Pulse Rate 96 H Pulse Rate [ 96 H Apical] Respiratory Rate Blood Pressure O2 Sat by Pulse 97 Oximetry - General Appearance General appearance: well-developed, well-nourished, appears stated age EENT: ATNC, PERRL, mucous membranes moist Neck: no JVD, no carotid bruit Respiratory: Present: Clear to Ascultation. Absent: Rales, [place] Cardiology: regular, S1S2 Gastrointestinal: normoactive bowel sounds, no tenderness, no distended Integumentary: no rash, warm and dry Neurologic: no focal deficit, no asterixis, alert and oriented x3 Musculoskeletal: other (no edema in BLE) Psychiatric: mood/affect appropriate, cooperative - Lab 11/18/18 05:12 11/18/18 06:51 Most recent lab results Calcium 8.8 mg/dL (8.4-10.2) 11/18/18 06:51 Urine Creatinine 139.1 mg/dL (0.1-20.0) H 11/17/18 17:45 Urine Sodium 30 mmol/L 11/17/18 17:45 Urine Total Protein 16 mg/dL (5-11.8) H 11/17/18 17:45 Medications & Allergies - Medications Allergies/Adverse Reactions: Allergies No Known Allergies Allergy (Unverified 01/28/15 07:33) Home Medications: Home Medications Medication Instructions Recorded Confirmed Last Taken Type Acetaminophen [Acetaminophen TAB] 650 mg PO Q6H PRN #15 tablet 11/17/18 Unknown Rx Aspirin [Aspirin EC] 81 mg PO QDAY #30 tab 11/17/18 Unknown Rx Pantoprazole [Protonix TAB] 40 mg PO QDAY #30 tablet 11/17/18 Unknown Rx amLODIPine [Norvasc] 10 mg PO QDAY #30 tablet 11/17/18 Unknown Rx Active Medications: Generic Name Dose Route Start Last Admin Trade Name Freq PRN Reason Stop Dose Admin Acetaminophen 650 mg 11/16/18 09:47 Tylenol PO Q6H PRN Non Cardiac Pain or Temp>100.5 Acetaminophen/Hydrocodone Bitart 1 each 11/16/18 09:47 11/17/18 22:54 [place] 10/325 PO 1 each Q4H PRN Administration Pain , Severe (7-10) Amlodipine Besylate 10 mg 11/16/18 10:00 11/18/18 09:06 Norvasc PO 10 mg QDAY ROBE Administration Aspirin 325 mg 11/16/18 10:00 11/18/18 09:06 Aspirin PO 325 mg QDAY ROBE Administration Atorvastatin Calcium 40 mg 11/16/18 22:00 11/17/18 22:54 Lipitor PO 40 mg QHS ROBE Administration Heparin Sodium (Porcine) 5,000 unit 11/17/18 09:47 11/18/18 09:07 Heparin SUB-Q 5,000 unit Q12HR ROBE Administration Hydralazine HCl 10 mg 11/16/18 09:47 11/16/18 11:44 Apresoline IV 10 mg Q4HR PRN Administration Blood Pressure Labetalol HCl 10 mg 11/16/18 09:47 Normodyne IV Q4H PRN Blood Pressure Morphine Sulfate 2 mg 11/16/18 09:47 11/17/18 15:49 Morphine IV 2 mg Q4H PRN Administration Pain , Severe (7-10) Ondansetron HCl 4 mg 11/16/18 09:47 Zofran IV Q4H PRN Nausea And Vomiting Pantoprazole Sodium 40 mg 11/16/18 10:00 11/18/18 09:07 Protonix PO 40 mg QDAY ROBE Administration Zolpidem Tartrate 5 mg 11/16/18 09:47 11/17/18 22:54 Ambien PO 5 mg QHS PRN Administration Sleep
[2018-11-18 15:00] VITALS: BP 175/68
== END 2018-11-18 16:06 | disposition home health service (06) | DRG 304 ==
LOC: ED 04:40 → 2B-ACE 09:05
PROVIDERS: ADMIT Internal Medicine; ATTEND Internal Medicine
DX: I16.1 Hypertensive emergency (principal); N17.0 Acute kidney failure with tubular necrosis; I10 Essential (primary) hypertension; Z86.73 Personal history of transient ischemic attack (TIA), and cerebral infarction without residual deficits; M19.90 Unspecified osteoarthritis, unspecified site; G43.909 Migraine, unspecified, not intractable, without status migrainosus; Z82.49 Family history of ischemic heart disease and other diseases of the circulatory system; Z23 Encounter for immunization
CPT/HCPCS: 36415; 70450; 71045; 76770; 80048; 80061; 80076; 81001; 82570; 82607; 82747; 83880; 84156; 84300; 84443; 84484; 84520; 85025; 85027; 85610; 85652; 85730; 90686; 90732; 93005; 93010; G0378; A9270-GY; J0360; J1644; J2270; J7030

== ENCOUNTER 2018-11-19 08:43 | Emergency (ER) | payer MEDICARE ==
[2018-11-19] MEDS ORDERED: CATAPRES PO ONE (09:21)
[2018-11-19 09:42] LABS: Basophils # (Auto) 0.1 K/mm3 (0.0-0.1); Basophils % (Auto) 0.6 % (0.0-1.8); Eosinophils # (Auto) 0.1 K/mm3 (0.0-0.4); Eosinophils % (Auto) 0.6 % (0.0-4.3); Hematocrit 32.9 % (30.3-42.9); Hemoglobin 10.9 gm/dl (10.1-14.3); Lymphocytes # (Auto) 1.3 K/mm3 (1.2-5.4); Lymphocytes % (Auto) 12.2 % (13.4-35.0); Mean Corpuscular HGB Conc 33 % (30-34); Mean Corpuscular Volume 90 fl (79-97); Monocytes # (Auto) 0.8 K/mm3 (0.0-0.8); Monocytes % (Auto) 8.1 % (0.0-7.3); Platelet Count 293 K/mm3 (140-440); Red Blood Count 3.65 M/mm3 (3.65-5.03)
--- NOTE | 2018-11-19 10:00 | XRay Report ---
LUMBOSACRAL SPINE, 3 VIEWS: History: Back pain after fall Findings: Osteopenia is evident. There is normal height and alignment of the lumbar vertebra. No compression deformity, subluxation or bone lesion is identified. The sacrum and SI joints are grossly intact. Moderate facet arthropathy is identified at all levels. No significant degenerative disc disease is appreciated. Impression: Osteopenia. Diffuse facet arthropathy. No fracture is detected on x-ray.
[2018-11-19 10:03] LABS: Calcium 9.4 mg/dL (8.4-10.2)
[2018-11-19 10:33] LABS: Bilirubin,Urine NEG (Negative); Blood,Urine MOD (Negative); Color,Urine Yellow (Yellow); Mucus,Urine FEW /HPF; Protein,Urine <15 mg/dL mg/dL (Negative); Urobilinogen,Urine < 2.0 mg/dL (<2.0)
--- NOTE | 2018-11-19 10:38 | Emergency Department Report ---
ED General Adult HPI - General Chief complaint: Fall Stated complaint: FALL Time Seen by Provider: 11/19/18 09:37 Source: patient, EMS Mode of arrival: Stretcher Limitations: No Limitations - History of Present Illness Initial comments: This is an 83-year-old female who has a triage history suggesting that she fell out of bed. The patient does not give me a history of a fall. States that she has a history of stroke and appears to have dementia. There is no family. I'm uncertain as to her living situation. Have asked the nurse to desiccate this. The nurse stated that he believed the patient came from home. In any case the patient does complain of lower back pain but she clearly states that this is a chronic condition. She states she has had it for years and that sometimes it radiates down her right thigh. She knows she is in the hospital and can tell me her name. She specifically denies fall or injury. She denies any neurological change. She states that she is able to walk to the bathroom. She denies any bowel or bladder dysfunction. -: year(s) Location: back Radiation: other Quality: aching Consistency: intermittent Improves with: none Worsens with: none Associated Symptoms: denies other symptoms Treatments Prior to Arrival: none - Related Data Previous Rx's Medication Instructions Recorded Last Taken Type Acetaminophen [Acetaminophen TAB] 650 mg PO Q6H PRN #15 tablet 11/17/18 Unknown Rx Aspirin [Aspirin EC] 81 mg PO QDAY #30 tab 11/17/18 Unknown Rx Pantoprazole [Protonix TAB] 40 mg PO QDAY #30 tablet 11/17/18 Unknown Rx amLODIPine [Norvasc] 10 mg PO QDAY #30 tablet 11/17/18 Unknown Rx Hydralazine HCl 50 mg PO BID #60 tablet 11/19/18 Unknown Rx traMADol [Ultram 50 MG tab] 50 mg PO Q6HR PRN #14 tablet 11/19/18 Unknown Rx Allergies Allergy/AdvReac Type Severity Reaction Status Date / Time No Known Allergies Allergy Verified 11/19/18 08:54 ED Review of Systems ROS: Stated complaint: FALL Other details as noted in HPI ED Past Medical Hx - Past Medical History Hx Hypertension: Yes Hx CVA: Yes (2015) Hx Heart Attack/AMI: No Hx Congestive Heart Failure: No Hx Liver Disease: No Hx Renal Disease: No Hx Sickle Cell Disease: No Hx Arthritis: Yes Hx Headaches / Migraines: Yes Hx Seizures: No Hx Asthma: No - Social History Smoking Status: Never Smoker Substance Use Type: None - Medications Home Medications: Home Medications Medication Instructions Recorded Confirmed Last Taken Type Acetaminophen [Acetaminophen TAB] 650 mg PO Q6H PRN #15 tablet 11/17/18 Unknown Rx Aspirin [Aspirin EC] 81 mg PO QDAY #30 tab 11/17/18 Unknown Rx Pantoprazole [Protonix TAB] 40 mg PO QDAY #30 tablet 11/17/18 Unknown Rx amLODIPine [Norvasc] 10 mg PO QDAY #30 tablet 11/17/18 Unknown Rx Hydralazine HCl 50 mg PO BID #60 tablet 11/19/18 Unknown Rx traMADol [Ultram 50 MG tab] 50 mg PO Q6HR PRN #14 tablet 11/19/18 Unknown Rx ED Physical Exam - General Limitations: No Limitations ED Course Vital Signs 11/19/18 11/19/18 11/19/18 08:54 09:09 09:51 Temperature 98 F Pulse Rate 97 H 80 Respiratory 18 16 Rate Blood Pressure 215/102 216/96 Blood Pressure 216/96 [Left] O2 Sat by Pulse 100 96 Oximetry 11/19/18 11/19/18 11/19/18 10:52 12:30 13:16 Temperature Pulse Rate 84 82 Respiratory 16 16 Rate Blood Pressure 181/81 Blood Pressure 207/87 175/81 [Left] O2 Sat by Pulse 97 96 Oximetry ED Medical Decision Making - Lab Data Result diagrams: 11/19/18 09:25 11/19/18 09:25 Laboratory Results - last 24 hr 11/19/18 11/19/18 11/19/18 09:25 09:25 09:51 WBC 10.3 RBC 3.65 Hgb 10.9 Hct 32.9 MCV 90 MCH 30 MCHC 33 RDW 15.0 Plt Count 293 Lymph % (Auto) 12.2 L [place] % (Auto) 8.1 H Eos % (Auto) 0.6 Baso % (Auto) 0.6 Lymph # 1.3 [place] # 0.8 Eos # 0.1 Baso # 0.1 Seg Neutrophils % 78.5 H Seg Neutrophils # 8.1 H Sodium 140 Potassium 4.0 Chloride 102.0 Carbon Dioxide 23 Anion Gap 19 BUN 21 H Creatinine 1.5 H Estimated GFR 40 BUN/Creatinine Ratio 14 Glucose 102 H Calcium 9.4 Urine Color Yellow Urine Turbidity Clear Urine pH 5.0 Ur Specific [place] 1.011 Urine Protein <15 mg/dl Urine Glucose (UA) Neg Urine Ketones Tr Urine Blood Mod Urine Nitrite Neg Urine Bilirubin Neg Urine Urobilinogen < 2.0 Ur Leukocyte Esterase Neg Urine WBC (Auto) 1.0 Urine RBC (Auto) 1.0 U Epithel Cells (Auto) 2.0 Urine Mucus Few - Radiology Data Aortic study showed no aneurysm with a maximum aortic diameter of 1.88 cm. There was evidence of atherosclerosis with several stenotic vessels. This finding is incidental. Critical care attestation.: If time is entered above; I have spent that time in minutes in the direct care of this critically ill patient, excluding procedure time. ED Disposition Clinical Impression: Poorly-controlled hypertension Lower back pain Qualifiers: Chronicity: chronic Back pain laterality: right Sciatica presence: without sciatica Qualified Code(s): M54.5 - Low back pain; G89.29 - Other chronic pain Disposition: TO HOME OR SELFCARE Is pt being admited?: No Does the pt Need Aspirin: No Condition: Stable Instructions: Back Pain (ED), Hypertension (ED) Additional Instructions: Follow-up with usual primary care provider. If you need one, see referrals. Your blood pressure is not adequately controlled. I have added a medication. I'll give you a prescription of something for pain. Return any acute change or problems/worsening pain. Prescriptions: Hydralazine HCl 50 mg PO BID #60 tablet traMADol [Ultram 50 MG tab] 50 mg PO Q6HR PRN #14 tablet PRN Reason: Pain Referrals: PEPE MEDRANO MD [Primary Care Provider] - 3-5 Days [facility] [Provider Group] - 2-3 Days YAMILA NGUYEN MD [Staff Physician] - 2-3 Days Time of Disposition: 15:10
[2018-11-19] MEDS ORDERED: NORMODYNE IV ONE (12:16)
[2018-11-19 13:16] VITALS: BP 175/81
--- NOTE | 2018-11-19 15:36 | Ultrasound Report ---
PROCEDURE: US AORTA SCAN (AAA) TECHNIQUE: Aortic ultrasound. HISTORY: lower back pain COMPARISONS: None currently available. FINDINGS: Proximal aorta: 1.9 cm maximum diameter. 102 cm/s. Mid aorta: 1.84 cm maximum diameter. 94 cm/s. Distal aorta: 1.53 cm maximum diameter. 119 cm/s Celiac axis velocity: 273 cm/s Superior mesenteric artery velocity: 333 cm/s Right common iliac: 0.94 cm. 219 cm/s. Distal common iliac demonstrates 494 cm/s Left common iliac: 1.1 cm. Proximal velocity is 258 cm/s and distal velocity is 178 cm/s IMPRESSION: * Elevated velocities in the celiac axis, SMA, and comment iliac artery suggest hemodynamically sign ificant stenosis. Correlation with CTA may be helpful if clinically indicated. * No abdominal aortic aneurysm. This document is electronically signed by Jabari Cote MD., November 19 2018 03:33:46 PM ET
== END 2018-11-19 16:33 | disposition home or self-care (01) ==
LOC: ED 08:43
DX: G89.29 Other chronic pain (principal); M54.5 Low back pain; I10 Essential (primary) hypertension; M19.90 Unspecified osteoarthritis, unspecified site; G43.909 Migraine, unspecified, not intractable, without status migrainosus; Z86.73 Personal history of transient ischemic attack (TIA), and cerebral infarction without residual deficits; Z79.82 Long term (current) use of aspirin
CPT/HCPCS: 36415; 72100; 76775; 80048; 81001; 85025; 96374; 99285

== ENCOUNTER 2019-06-15 15:45 | Emergency (ER) | payer MEDICARE ==
--- NOTE | 2019-06-15 17:25 | Emergency Department Report ---
ED General Adult HPI - General Chief complaint: Weakness Stated complaint: LEG WEAKNESS Time Seen by Provider: 06/15/19 16:24 Source: EMS Mode of arrival: Stretcher Limitations: No Limitations - History of Present Illness Initial comments: Patient is 84-year-old female who is presenting after her daughter called paramedics because the patient was "weak". Patient's daughter is not here at this time. The patient states she feels absolutely fine. States there is no weakness pain nausea vomiting diarrhea. She says she is not sure why her daughter called the paramedics. Severity scale (0 -10): 0 Associated Symptoms: denies: chest pain, cough, diaphoresis, headaches, loss of appetite, nausea/vomiting, rash, shortness of breath, syncope, weakness - Related Data Previous Rx's Medication Instructions Recorded Last Taken Type Acetaminophen [Acetaminophen TAB] 650 mg PO Q6H PRN #15 tablet 11/17/18 Unknown Rx Aspirin [Aspirin EC] 81 mg PO QDAY #30 tab 11/17/18 Unknown Rx Pantoprazole [Protonix TAB] 40 mg PO QDAY #30 tablet 11/17/18 Unknown Rx traMADol [Ultram 50 MG tab] 50 mg PO Q6HR PRN #14 tablet 11/19/18 Unknown Rx Hydralazine HCl 50 mg PO BID #60 tablet 06/15/19 Unknown Rx amLODIPine [Norvasc] 10 mg PO QDAY #30 tablet 06/15/19 Unknown Rx Allergies Allergy/AdvReac Type Severity Reaction Status Date / Time No Known Allergies Allergy Verified 11/19/18 08:54 ED Review of Systems ROS: Stated complaint: LEG WEAKNESS Other details as noted in HPI Comment: All other systems reviewed and negative ED Past Medical Hx - Past Medical History Previous Medical History?: Yes Hx Hypertension: Yes Hx CVA: Yes (2015) Hx Heart Attack/AMI: No Hx Congestive Heart Failure: No Hx Liver Disease: No Hx Renal Disease: No Hx Sickle Cell Disease: No Hx Arthritis: Yes Hx Headaches / Migraines: Yes Hx Seizures: No Hx Asthma: No - Surgical History Past Surgical History?: No - Social History Smoking Status: Never Smoker Substance Use Type: None - Medications Home Medications: Home Medications Medication Instructions Recorded Confirmed Last Taken Type Acetaminophen [Acetaminophen TAB] 650 mg PO Q6H PRN #15 tablet 11/17/18 Unknown Rx Aspirin [Aspirin EC] 81 mg PO QDAY #30 tab 11/17/18 Unknown Rx Pantoprazole [Protonix TAB] 40 mg PO QDAY #30 tablet 11/17/18 Unknown Rx traMADol [Ultram 50 MG tab] 50 mg PO Q6HR PRN #14 tablet 11/19/18 Unknown Rx Hydralazine HCl 50 mg PO BID #60 tablet 06/15/19 Unknown Rx amLODIPine [Norvasc] 10 mg PO QDAY #30 tablet 06/15/19 Unknown Rx ED Physical Exam - General Limitations: No Limitations General appearance: alert, in no apparent distress - Head Head exam: Present: atraumatic, normocephalic - Eye Eye exam: Present: normal appearance, PERRL, EOMI - ENT ENT exam: Present: normal orophraynx, mucous membranes moist - Neck Neck exam: Present: normal inspection - Respiratory Respiratory exam: Present: normal lung sounds bilaterally. Absent: respiratory distress, wheezes, rales, rhonchi - Cardiovascular Cardiovascular Exam: Present: regular rate, normal rhythm, normal heart sounds. Absent: systolic murmur, diastolic murmur, rubs, gallop - GI/Abdominal GI/Abdominal exam: Present: soft, normal bowel sounds. Absent: distended, tenderness, guarding, rebound, rigid - Extremities Exam Extremities exam: Present: normal inspection - Back Exam Back exam: Present: normal inspection - Neurological Exam Neurological exam: Present: alert, oriented X3, CN II-XII intact. Absent: motor sensory deficit - Psychiatric Psychiatric exam: Present: normal affect, normal mood - Skin Skin exam: Present: warm, dry, intact, normal color. Absent: rash ED Course Vital Signs 06/15/19 06/15/19 06/15/19 15:59 16:30 16:47 Temperature 98.3 F Pulse Rate 85 86 89 Respiratory 14 16 Rate Blood Pressure 216/101 202/86 Blood Pressure 216/101 179/73 [Left] O2 Sat by Pulse 100 99 Oximetry - Reevaluation(s) Reevaluation #1: 06/15/19 17:24 Patient is a 84-year-old black female who states she has no complaints at this time. Patient is adamant that she would like to go home. Patient's daughter called paramedics toes she stated that the patient was weak. Patient's physical exam is within normal limits however because do not know how the patient was behaving when her daughter called paramedics I am unable to ascertain whether the patient is truly having no complaints or if she is altered and unable to give a proper history herself. Basic labs including a BMP and CBC we ordered urinalysis ordered and will monitor the patient. Patient blood pressure is significantly elevated and she was given labetalol "when asked that she take blood pressure medicines patient states" I take them sometimes" 06/15/19 17:50 ED Medical Decision Making - Lab Data Result diagrams: 06/15/19 16:39 06/15/19 16:39 Lab Results 06/15/19 06/15/19 06/15/19 Range/Units 16:39 16:39 17:05 WBC 9.4 (4.5-11.0) K/mm3 RBC 4.06 (3.65-5.03) M/mm3 Hgb 11.8 (10.1-14.3) gm/dl Hct 35.9 (30.3-42.9) % MCV 88 (79-97) fl MCH 29 (28-32) pg MCHC 33 (30-34) % RDW 15.2 (13.2-15.2) % Plt Count 205 (140-440) K/mm3 Lymph % (Auto) [employer] Patrick % (Auto) [employer]ter Eos % (Auto) [employer]ter Baso % (Auto) [employer]ter Lymph # [employer]ter Patrick # [employer]ter Eos # [employer]ter Baso # [employer]ter Seg Neutrophils % [employer]ter Seg Neutrophils # [employer]ter Sodium 142 (137-145) mmol/L Potassium 3.8 (3.6-5.0) mmol/L Chloride 103.8 (98-107) mmol/L Carbon Dioxide 25 (22-30) mmol/L Anion Gap 17 mmol/L BUN 16 (7-17) mg/dL Creatinine 1.6 H (0.7-1.2) mg/dL Estimated GFR 37 ml/min BUN/Creatinine Ratio 10 % Glucose 110 H (65-100) mg/dL Calcium 9.3 (8.4-10.2) mg/dL Urine Color Yellow (Yellow) Urine Turbidity Clear (Clear) Urine pH 5.0 (5.0-7.0) Ur Specific [place] 1.014 (1.003-1.030) Urine Protein <15 mg/dl (Negative) mg/dL Urine Glucose (UA) Neg (Negative) mg/dL Urine Ketones Neg (Negative) mg/dL Urine Blood Neg (Negative) Urine Nitrite Neg (Negative) Urine Bilirubin Neg (Negative) Urine Urobilinogen < 2.0 (<2.0) mg/dL Ur Leukocyte Esterase Neg (Negative) Urine WBC (Auto) 1.0 (0.0-6.0) /HPF Urine RBC (Auto) 1.0 (0.0-6.0) /HPF U Epithel Cells (Auto) 1.0 (0-13.0) /HPF - Medical Decision Making Patient's blood pressure did improve after patient was given labetalol. Patient is having no signs or symptoms of end organ damage. Patient's renal function is actually better than her baseline. Patient's laboratory studies otherwise are within normal limits. Reason to believe this time that the patient truly is not having any real complaints. Patient will be discharged home. Critical care attestation.: If time is entered above; I have spent that time in minutes in the direct care of this critically ill patient, excluding procedure time. ED Disposition Clinical Impression: Hypertensive urgency Disposition: DC-01 TO HOME OR SELFCARE Is pt being admited?: No Does the pt Need Aspirin: No Condition: Stable Instructions: Hypertension (ED) Prescriptions: Hydralazine HCl 50 mg PO BID #60 tablet amLODIPine [Norvasc] 10 mg PO QDAY #30 tablet Referrals: BRUCE SAUCEDO MD [Staff Physician] - 3-5 Days Time of Disposition: 17:54
[2019-06-15 17:33] LABS: Hematocrit 35.9 % (30.3-42.9); Hemoglobin 11.8 gm/dl (10.1-14.3); Mean Corpuscular HGB Conc 33 % (30-34); Mean Corpuscular Volume 88 fl (79-97); Platelet Count 205 K/mm3 (140-440); Red Blood Count 4.06 M/mm3 (3.65-5.03); Red Cell Distribution Width 15.2 % (13.2-15.2)
[2019-06-15 17:38] LABS: Bilirubin,Urine NEG (Negative); Blood,Urine NEG (Negative); Color,Urine Yellow (Yellow); Protein,Urine <15 mg/dL mg/dL (Negative); Urobilinogen,Urine < 2.0 mg/dL (<2.0)
[2019-06-15 17:47] LABS: Calcium 9.3 mg/dL (8.4-10.2)
[2019-06-15 18:00] VITALS: BP 137/78
== END 2019-06-15 18:54 | disposition home or self-care (01) ==
LOC: ED 15:45
DX: I16.0 Hypertensive urgency (principal); I10 Essential (primary) hypertension; G43.909 Migraine, unspecified, not intractable, without status migrainosus; M19.90 Unspecified osteoarthritis, unspecified site; Z86.73 Personal history of transient ischemic attack (TIA), and cerebral infarction without residual deficits; Z79.82 Long term (current) use of aspirin; Z79.899 Other long term (current) drug therapy
CPT/HCPCS: 36415; 80048; 81001; 85025; 93005; 93010; 96374

== ENCOUNTER 2019-06-23 10:23 | Emergency (ER) | payer MEDICARE ==
--- NOTE | 2019-06-23 10:58 | Emergency Department Report ---
ED General Adult HPI - General Chief complaint: Fall Stated complaint: GROUND LEVEL FALL Time Seen by Provider: 06/23/19 10:35 Source: patient, EMS (ems notes not available at time of chart dictation), RN notes reviewed Mode of arrival: Stretcher Limitations: Physical Limitation, Other (patient is a poor historian) - History of Present Illness Initial comments: This is an 84-year-old female. This patient is not known to this provider previously. She is brought to the hospital by emergency medical services. Apparently, the patient endorses bilateral plantar foot pain, and reportedly had a mechanical fall. To me, the patient does not endorse foot pain. She thinks that she fell, but she is not certain. She complains of chronic left-sided paraspinal neck pain. Apparently the pain increases with palpation. It decreases with rest. She does not endorse any radiation. She does not know if she hit her head or her neck. She denies physical pain elsewhere The patient has difficulty describing qualitative nature of pain, exacerbating or relieving factors. She is not accompanied by any friends or family members at this time. -: This morning Radiation: other Quality: other Consistency: other Improves with: other Worsens with: other - Related Data Previous Rx's Medication Instructions Recorded Last Taken Type Acetaminophen [Acetaminophen TAB] 650 mg PO Q6H PRN #15 tablet 11/17/18 Unknown Rx Aspirin [Aspirin EC] 81 mg PO QDAY #30 tab 11/17/18 Unknown Rx Pantoprazole [Protonix TAB] 40 mg PO QDAY #30 tablet 11/17/18 Unknown Rx traMADol [Ultram 50 MG tab] 50 mg PO Q6HR PRN #14 tablet 11/19/18 Unknown Rx Hydralazine HCl 50 mg PO BID #60 tablet 06/15/19 Unknown Rx amLODIPine [Norvasc] 10 mg PO QDAY #30 tablet 06/15/19 Unknown Rx Allergies Allergy/AdvReac Type Severity Reaction Status Date / Time No Known Allergies Allergy Verified 11/19/18 08:54 ED Review of Systems ROS: Stated complaint: GROUND LEVEL FALL Other details as noted in HPI Eyes: denies: eye discharge ENT: denies: epistaxis Respiratory: denies: wheezing Cardiovascular: denies: syncope Genitourinary: denies: dysuria Musculoskeletal: myalgia Neurological: denies: numbness ED Past Medical Hx - Past Medical History Previous Medical History?: Yes Hx Hypertension: Yes Hx CVA: Yes (2016) Hx Heart Attack/AMI: No Hx Congestive Heart Failure: No Hx Liver Disease: No Hx Renal Disease: No Hx Sickle Cell Disease: No Hx Arthritis: Yes Hx Headaches / Migraines: Yes Hx Seizures: No Hx Asthma: No Additional medical history: Alzheimer's - Social History Smoking Status: Never Smoker - Medications Home Medications: Home Medications Medication Instructions Recorded Confirmed Last Taken Type Acetaminophen [Acetaminophen TAB] 650 mg PO Q6H PRN #15 tablet 11/17/18 Unknown Rx Aspirin [Aspirin EC] 81 mg PO QDAY #30 tab 11/17/18 Unknown Rx Pantoprazole [Protonix TAB] 40 mg PO QDAY #30 tablet 11/17/18 Unknown Rx traMADol [Ultram 50 MG tab] 50 mg PO Q6HR PRN #14 tablet 11/19/18 Unknown Rx Hydralazine HCl 50 mg PO BID #60 tablet 06/15/19 Unknown Rx amLODIPine [Norvasc] 10 mg PO QDAY #30 tablet 06/15/19 Unknown Rx ED Physical Exam - General Limitations: Physical Limitation, Other (the patient is a poor historian) General appearance: alert, in no apparent distress - Head Head exam: Present: atraumatic, normocephalic - Eye Eye exam: Present: normal appearance, EOMI, other (visual acuity intact to finger counting and color perception). Absent: nystagmus - ENT ENT exam: Present: normal exam, normal orophraynx, mucous membranes moist, normal external ear exam - Neck Neck exam: Present: normal inspection, full ROM, other (there is reproducible left-sided paracervical tenderness. There is no midline cervical spine tenderness). Absent: meningismus - Respiratory Respiratory exam: Present: normal lung sounds bilaterally. Absent: respiratory distress - Cardiovascular Cardiovascular Exam: Present: regular rate, normal rhythm, normal heart sounds. Absent: bradycardia, tachycardia, irregular rhythm, systolic murmur, diastolic murmur, rubs, gallop - GI/Abdominal GI/Abdominal exam: Present: soft. Absent: distended, tenderness, guarding, rebound, rigid, pulsatile mass - Extremities Exam Extremities exam: Present: normal inspection, other (2+ pulses noted in the bilateral upper, lower extremities. Compartments soft. No long bony tenderness. The pelvis is stable.). Absent: tenderness (there is minimal bilateral plantar foot tenderness. There is no redness, pus or streaking.), calf tenderness - Back Exam Back exam: Present: normal inspection. Absent: tenderness, CVA tenderness (R), CVA tenderness (L), paraspinal tenderness, vertebral tenderness - Neurological Exam Neurological exam: Present: alert, other (there is no facial droop. The tongue is midline. Extraocular movements are intact bilaterally. There is 5/5 strength bilateral upper, lower extremities. Downgoing plantar reflexes bilaterally. Sensation is intact to light touch and pinch in 4 extremities.) - Psychiatric Psychiatric exam: Present: flat affect - Skin Skin exam: Present: warm, dry, intact, normal color. Absent: rash ED Course Vital Signs 06/23/19 06/23/19 06/23/19 10:45 11:09 11:12 Temperature 98.5 F Pulse Rate 84 Respiratory 17 12 Rate Blood Pressure 153/83 Blood Pressure 193/65 [Right] O2 Sat by Pulse 100 97 Oximetry 06/23/19 13:30 Temperature Pulse Rate Respiratory Rate Blood Pressure Blood Pressure 167/100 [Right] O2 Sat by Pulse Oximetry - Reevaluation(s) Reevaluation #1: 06/23/19 14:00 Patient in no acute distress. Laboratory studies reviewed and appreciated. Patient resting comfortably for hours, without clinical deterioration. No objective emergent condition is identified. 06/23/19 14:01 Patient was seen and evaluated by case management, who have initiated outpatient home orders. ED Medical Decision Making - Lab Data Result diagrams: 06/23/19 11:37 Vital Signs 06/23/19 06/23/19 06/23/19 10:45 11:09 11:12 Temperature 98.5 F Pulse Rate 84 Respiratory 17 12 Rate Blood Pressure 153/83 Blood Pressure 193/65 [Right] O2 Sat by Pulse 100 97 Oximetry Vital Signs 06/23/19 06/23/19 06/23/19 10:45 11:09 11:12 Temperature 98.5 F Pulse Rate 84 Respiratory 17 12 Rate Blood Pressure 153/83 Blood Pressure 193/65 [Right] O2 Sat by Pulse 100 97 Oximetry 06/23/19 13:30 Temperature Pulse Rate Respiratory Rate Blood Pressure Blood Pressure 167/100 [Right] O2 Sat by Pulse Oximetry Lab Results 06/23/19 06/23/19 06/23/19 Range/Units 11:37 11:37 11:37 Sodium 140 (137-145) mmol/L Potassium 3.5 L (3.6-5.0) mmol/L Chloride 104.0 (98-107) mmol/L Carbon Dioxide 24 (22-30) mmol/L Anion Gap 16 mmol/L BUN 24 H (7-17) mg/dL Creatinine 1.6 H (0.7-1.2) mg/dL Estimated GFR 37 ml/min BUN/Creatinine Ratio 15 % Glucose 96 (65-100) mg/dL Calcium 9.1 (8.4-10.2) mg/dL Magnesium 2.00 (1.7-2.3) mg/dL Total Creatine Kinase 42 (30-135) units/L TSH 2.490 (0.270-4.200) mlU/mL Free T4 1.15 (0.76-1.46) ng/dL Urine Color (Yellow) Urine Turbidity (Clear) Urine pH (5.0-7.0) Ur Specific [place] (1.003-1.030) Urine Protein (Negative) mg/dL Urine Glucose (UA) (Negative) mg/dL Urine Ketones (Negative) mg/dL Urine Blood (Negative) Urine Nitrite (Negative) Urine Bilirubin (Negative) Urine Urobilinogen (<2.0) mg/dL Ur Leukocyte Esterase (Negative) Urine WBC (Auto) (0.0-6.0) /HPF Urine RBC (Auto) (0.0-6.0) /HPF U Epithel Cells (Auto) (0-13.0) /HPF Urine Bacteria (Auto) (Negative) /HPF Urine Mucus /HPF Salicylates (2.8-20.0) mg/dL Acetaminophen (10.0-30.0) ug/mL 06/23/19 06/23/19 06/23/19 Range/Units 11:37 11:37 12:24 Sodium (137-145) mmol/L Potassium (3.6-5.0) mmol/L Chloride (98-107) mmol/L Carbon Dioxide (22-30) mmol/L Anion Gap mmol/L BUN (7-17) mg/dL Creatinine (0.7-1.2) mg/dL Estimated GFR ml/min BUN/Creatinine Ratio % Glucose (65-100) mg/dL Calcium (8.4-10.2) mg/dL Magnesium (1.7-2.3) mg/dL Total Creatine Kinase (30-135) units/L TSH (0.270-4.200) mlU/mL Free T4 (0.76-1.46) ng/dL Urine Color Yellow (Yellow) Urine Turbidity Clear (Clear) Urine pH 5.0 (5.0-7.0) Ur Specific [place] 1.016 (1.003-1.030) Urine Protein <15 mg/dl (Negative) mg/dL Urine Glucose (UA) Neg (Negative) mg/dL Urine Ketones Neg (Negative) mg/dL Urine Blood Neg (Negative) Urine Nitrite Neg (Negative) Urine Bilirubin Neg (Negative) Urine Urobilinogen < 2.0 (<2.0) mg/dL Ur Leukocyte Esterase Neg (Negative) Urine WBC (Auto) 4.0 (0.0-6.0) /HPF Urine RBC (Auto) < 1.0 (0.0-6.0) /HPF U Epithel Cells (Auto) < 1.0 (0-13.0) /HPF Urine Bacteria (Auto) 1+ (Negative) /HPF Urine Mucus Few /HPF Salicylates < 0.3 L (2.8-20.0) mg/dL Acetaminophen < 5.0 L (10.0-30.0) ug/mL - EKG Data -: EKG Interpreted by Ok EKG shows normal: sinus rhythm Rate: normal - EKG Data When compared to previous EKG there are: previous EKG unavailable 06/23/19 12:21 The EKG shows a sinus rhythm, 78 bpm, normal axis, QTC is 417 ms, there is left ventricular hypertrophy, there is no endorsement of chest pain, the EKG is abnormal, the EKG is not consistent with ST elevation myocardial infarction. - Radiology Data Radiology results: report reviewed, image reviewed Noncontrast CT scan of the brain and cervical spine negative for acute disease. X-ray of the pelvis is negative for acute disease. Critical care attestation.: If time is entered above; I have spent that time in minutes in the direct care of this critically ill patient, excluding procedure time. ED Disposition Clinical Impression: History of fall, Renal insufficiency Disposition: DC-01 TO HOME OR SELFCARE Is pt being admited?: No Does the pt Need Aspirin: No Condition: Stable Additional Instructions: Cultures were sent today, and results will be available in the next 3-5 days. Please have a primary care doctor contact medical records department to obtain culture results. Avoid consumption of Motrin, ibuprofen, Naprosyn, Aleve. Please note that laboratory studies today demonstrated mildly impaired kidney function, and blood pressure was found to be elevated. These should be followed up by a primary care doctor or kidney doctor within the next 10-14 days. Patient may take [id number] Tylenol as needed for pain. Return to the emergency room right away with new, worsening or different symptoms not present on the initial emergency room evaluation. Referrals: HEATHER SOLANO MD [Staff Physician] - 3-5 Days [facility] [Provider Group] - 3-5 Days
--- NOTE | 2019-06-23 11:20 | XRay Report ---
AP PELVIS INDICATION: fall leg pain. COMPARISON: None. IMPRESSION: Borderline bone mineralization. No evidence for fracture, dislocation or diastasis. Mild degenerative changes are noted in the lower lumbar spine, SI joints and bilateral hips. The soft tis sues are unremarkable Signer Name: Isaac Goff Jr, MD Signed: 06/23/2019 11:16 AM Workstation Name: [id number]
--- NOTE | 2019-06-23 11:52 | Cat Scan Report ---
CT HEAD WITHOUT CONTRAST HISTORY: Head injury, fall. TECHNIQUE: Axial imaging performed from the skull apex through the skull base without the use of con trast. All CT scans at this location are performed using CT dose reduction for ALARA by means of aut omated exposure control. COMPARISON: None FINDINGS: Parenchyma: No acute intracranial hemorrhage or parenchymal abnormality.. Mild hypoattenuation thro ughout the white matter is noted and consistent with chronic microvascular ischemic disease. Ventricles: There is mild diffuse brain atrophy with commensurate ventricular enlargement which is l ikely age appropriate. Soft tissues: Soft tissues including the orbits appear normal. Bones: No acute osseous abnormality. Sinuses: Sinuses and mastoid air cells are clear. IMPRESSION: No acute abnormality. Senescent changes. CT CERVICAL SPINE WITHOUT CONTRAST INDICATION: falll neck pain. TECHNIQUE: Axial imaging performed through the cervical spine without the use of contrast. Sagittal and coronal reconstructed images were also reviewed. All CT scans at this location are performed us ing CT dose reduction for ALARA by means of automated exposure control. COMPARISON: None FINDINGS: Alignment: Spinal alignment is normal. Bones: There is no acute osseous abnormality. There is moderate to severe multilevel degenerative d isc narrowing with circumferential spurring. Near bridging or bridging anterior osteophytes are ident ified at C3-4, C4-5 and C6-7. The facet joints and posterior elements are within normal limits. No si gnificant facet arthropathy. No bone lesion. Soft tissues: No acute or significant incidental soft tissue abnormality. IMPRESSION: No acute abnormality. Moderate cervical spondylosis. Signer Name: Isaac Goff Jr, MD Signed: 06/23/2019 11:48 AM Workstation Name: [id number]
[2019-06-23 12:33] LABS: Calcium 9.1 mg/dL (8.4-10.2)
[2019-06-23 13:16] LABS: Bacteria,Urine 1+ /HPF (Negative); Bilirubin,Urine NEG (Negative); Blood,Urine NEG (Negative); Color,Urine Yellow (Yellow); Mucus,Urine FEW /HPF; Protein,Urine <15 mg/dL mg/dL (Negative); RBC,Urine < 1.0 /HPF (0.0-6.0); Urobilinogen,Urine < 2.0 mg/dL (<2.0)
[2019-06-23 13:31] VITALS: BP 167/100
== END 2019-06-23 17:57 | disposition home or self-care (01) ==
LOC: ED 10:23
DX: N28.9 Disorder of kidney and ureter, unspecified (principal); I10 Essential (primary) hypertension; M19.90 Unspecified osteoarthritis, unspecified site; G43.909 Migraine, unspecified, not intractable, without status migrainosus; G30.9 Alzheimer's disease, unspecified; F02.80 Dementia in other diseases classified elsewhere, unspecified severity, without behavioral disturbance, psychotic disturbance, mood disturbance, and anxiety; Z86.73 Personal history of transient ischemic attack (TIA), and cerebral infarction without residual deficits; Z79.899 Other long term (current) drug therapy
CPT/HCPCS: 36415; 70450; 72125; 72170; 80048; 80320; 81001; 82550; 83735; 84439; 84443; 87086; 93005; 93010; G0480

== ENCOUNTER 2022-04-14 15:47 | Emergency (ER) | payer MEDICARE ==
[2022-04-14] MEDS ORDERED: SODIUM CHLORIDE 0.9% 500 ML 500 ML IV ONE (16:09)
--- NOTE | 2022-04-14 16:29 | XRay Report ---
CHEST 1 VIEW 04/14/2022 3:23 PM INDICATION / CLINICAL INFORMATION: Altered Mental Status. COMPARISON: None available. FINDINGS: SUPPORT DEVICES: None. HEART / MEDIASTINUM: No significant abnormality. LUNGS / PLEURA: No significant pulmonary or pleural abnormality. No pneumothorax. ADDITIONAL FINDINGS: No significant additional findings. IMPRESSION: 1. No acute findings. Signer Name: Moe Anguiano MD Signed: 04/14/2022 4:25 PM Workstation Name: [id number]
[2022-04-14 16:40] LABS: Eosinophils % (Auto) 0.6 % (0.0-4.3); Hematocrit 31.1 % (30.3-42.9); Hemoglobin 10.5 gm/dl (10.1-14.3); Lymphocytes # (Auto) 1.5 K/mm3 (1.2-5.4); Lymphocytes % (Auto) 33.6 % (13.4-35.0); Mean Corpuscular HGB Conc 34 % (30-34); Mean Corpuscular Volume 89 fl (79-97); Monocytes # (Auto) 0.4 K/mm3 (0.0-0.8); Monocytes % (Auto) 9.4 % (0.0-7.3); Platelet Count 156 K/mm3 (140-440); Red Cell Distribution Width 15.6 % (13.2-15.2)
[2022-04-14 16:51] LABS: INR 1.03 (0.87-1.13)
[2022-04-14 17:04] LABS: Calcium 9.3 mg/dL (8.4-10.2)
[2022-04-14 17:19] LABS: C-Reactive Protein 0.3 mg/dL (0.00-1.30)
--- NOTE | 2022-04-14 17:28 | Cat Scan Report ---
CT HEAD WITHOUT CONTRAST INDICATION / CLINICAL INFORMATION: Altered Mental Status. TECHNIQUE: All CT scans at this location are performed using CT dose reduction for ALARA by means of automated e xposure control. COMPARISON: Head CT 06/23/2019 FINDINGS: HEMORRHAGE: No evidence of intracranial hemorrhage or extra-axial fluid collection. EXTRA-AXIAL SPACES: Cortical sulci and sylvian fissures are enlarged reflecting a degree of parenchym al volume loss which is within normal limits for the patient's age of . Basilar cisterns have an unre markable appearance. VENTRICULAR SYSTEM: The third and lateral ventricles are enlarged reflecting presence of age related parenchymal volume loss. CEREBRAL PARENCHYMA: Periventricular and deep white matter lucency is observed. This is probably seco ndary to microvascular ischemic change. There is no indication of recent infarction. A more well-circ umscribed area of decreased brain parenchymal attenuation in the left gangliocapsular region represen ts remote small deep infarction in this location. This is unchanged. MIDLINE SHIFT OR HERNIATION: There is no mass effect. CEREBELLUM / BRAINSTEM: Brainstem has an unremarkable appearance. Age related cerebellar atrophy is n oted. MIDLINE STRUCTURES:Pituitary gland has an unremarkable appearance. No abnormalities are seen in the p ineal region. INTRACRANIAL VESSELS:Calcified atherosclerotic plaque is present along the course of the cavernous se gments of both internal carotid arteries. Similar findings are seen at the distal vertebral arteries. CRANIOCERVICAL JUNCTION:No significant abnormality. ORBITS: visualized portions of the orbits have an unremarkable appearance. SOFT TISSUES of HEAD: No significant abnormality. CALVARIUM: Evaluation of bone windows reveals no abnormalities. PARANASAL SINUSES / MASTOID AIR CELLS: Paranasal sinuses are free from inflammatory mucosal disease. Mastoid air cells are normally pneumatized. IMPRESSION: 1. Age-related involutional changes of parenchymal volume loss and microvascular ischemia. 2. Remote small deep infarction left gangliocapsular region. 3. No acute intercranial abnormalities. No significant change when compared to head CT dated 9. Signer Name: Bipin Tipton MD Signed: 04/14/2022 5:23 PM Workstation Name: [id number]
[2022-04-14 18:08] LABS: Hyaline Casts,Urine 3 /LPF; Mucus,Urine FEW /HPF; RBC,Urine < 1.0 /HPF (0.0-6.0)
[2022-04-14 18:19] LABS: Bilirubin,Urine Negative (Negative); Blood,Urine Negative (Negative); Color,Urine Yellow (Yellow); Urobilinogen,Urine < 2.0 mg/dL (<2.0); WBC,Urine < 1.0 /HPF (0.0-6.0)
--- NOTE | 2022-04-14 18:27 | Emergency Department Report ---
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 -: days(s) Severity scale (0 -10): 0 Consistency: intermittent Improves with: none Worsens with: none Associated Symptoms: denies other symptoms, confusion Treatments Prior to Arrival: none - Related Data Previous Rx's Medication Instructions Recorded Last Taken Type Acetaminophen [Acetaminophen TAB] 650 mg PO Q6H PRN #15 tablet 11/17/18 Unknown Rx Aspirin [Aspirin EC] 81 mg PO QDAY #30 tab 11/17/18 Unknown Rx Pantoprazole [Protonix TAB] 40 mg PO QDAY #30 tablet 11/17/18 Unknown Rx traMADoL [Ultram 50 MG tab] 50 mg PO Q6HR PRN #14 tablet 11/19/18 Unknown Rx Hydralazine HCl 50 mg PO BID #60 tablet 06/15/19 Unknown Rx amLODIPine 10 mg PO QDAY #30 tablet 06/15/19 Unknown Rx Allergies Allergy/AdvReac Type Severity Reaction Status Date / Time No Known Allergies Allergy Verified 04/14/22 15:58 ED Review of Systems ROS: Stated complaint: DEMENTIA EPOSIDE/COMBATIVE Other details as noted in HPI Constitutional: denies: chills, fever Eyes: denies: eye pain, eye discharge, vision change ENT: denies: ear pain, throat pain Respiratory: denies: cough, shortness of breath, wheezing Cardiovascular: denies: chest pain, palpitations Endocrine: no symptoms reported Gastrointestinal: denies: abdominal pain, nausea, diarrhea Genitourinary: denies: urgency, dysuria, discharge Musculoskeletal: denies: back pain, joint swelling, arthralgia Skin: denies: rash, lesions Neurological: denies: headache, weakness, paresthesias Psychiatric: denies: anxiety, depression Hematological/Lymphatic: denies: easy bleeding, easy bruising ED Past Medical Hx - Past Medical History Previous Medical History?: Yes Hx Hypertension: Yes Hx CVA: Yes (2015) Hx Heart Attack/AMI: No Hx Congestive Heart Failure: No Hx Liver Disease: No Hx Renal Disease: No Hx Sickle Cell Disease: No Hx Arthritis: Yes Hx Headaches / Migraines: Yes Hx Seizures: No Hx Asthma: No Hx Dementia: Yes Additional medical history: Alzheimer's - Social History Smoking Status: Never Smoker - Medications Home Medications: Home Medications Medication Instructions Recorded Confirmed Last Taken Type Acetaminophen [Acetaminophen TAB] 650 mg PO Q6H PRN #15 tablet 11/17/18 Unknown Rx Aspirin [Aspirin EC] 81 mg PO QDAY #30 tab 11/17/18 Unknown Rx Pantoprazole [Protonix TAB] 40 mg PO QDAY #30 tablet 11/17/18 Unknown Rx traMADoL [Ultram 50 MG tab] 50 mg PO Q6HR PRN #14 tablet 11/19/18 Unknown Rx Hydralazine HCl 50 mg PO BID #60 tablet 06/15/19 Unknown Rx amLODIPine 10 mg PO QDAY #30 tablet 06/15/19 Unknown Rx ED Physical Exam - General Limitations: Physical Limitation General appearance: alert, in no apparent distress, other (profound dementia ) - Head Head exam: Present: atraumatic, normocephalic - Eye Eye exam: Present: normal appearance - ENT ENT exam: Present: mucous membranes moist - Neck Neck exam: Present: normal inspection - Respiratory Respiratory exam: Present: normal lung sounds bilaterally. Absent: respiratory distress - Cardiovascular Cardiovascular Exam: Present: regular rate, normal rhythm. Absent: systolic murmur, diastolic murmur, rubs, gallop - GI/Abdominal GI/Abdominal exam: Present: soft, normal bowel sounds - Extremities Exam Extremities exam: Present: normal inspection - Back Exam Back exam: Present: normal inspection - Neurological Exam Neurological exam: Present: alert, oriented X3 - Expanded Psychiatric Exam Expanded Focused psych exam: Present: other (dementia ) - Skin Skin exam: Present: warm, dry, intact, normal color. Absent: rash ED Course Vital Signs 04/14/22 15:55 Temperature 97.8 F Pulse Rate 72 Respiratory 16 Rate Blood Pressure 147/75 [Left] O2 Sat by Pulse 98 Oximetry ED Medical Decision Making - Lab Data Result diagrams: 04/14/22 16:22 04/14/22 16:22 - Radiology Data Radiology results: report reviewed, image reviewed - Medical Decision Making work up negative ckd noted , vss no distress Critical care attestation.: If time is entered above; I have spent that time in minutes in the direct care of this critically ill patient, excluding procedure time. ED Disposition Clinical Impression: Dementia Disposition: HOME / SELF CARE / HOMELESS Is pt being admited?: No Does the pt Need Aspirin: No Condition: Stable
[2022-04-15 02:57] VITALS: BP 142/76
--- NOTE | 2022-04-15 11:15 | Electrocardiograph Report ---
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 Consider anterolateral ischemmia No previous ECG available for comparison Electronically Signed On 04-15-2022 11:14:56 EDT by Joseph Wen
== END 2022-04-15 | disposition home or self-care (01) ==
LOC: ED 15:47
DX: F02.80 Dementia in other diseases classified elsewhere, unspecified severity, without behavioral disturbance, psychotic disturbance, mood disturbance, and anxiety (principal); I10 Essential (primary) hypertension; G43.909 Migraine, unspecified, not intractable, without status migrainosus; G30.9 Alzheimer's disease, unspecified; M19.90 Unspecified osteoarthritis, unspecified site; Z86.73 Personal history of transient ischemic attack (TIA), and cerebral infarction without residual deficits; Z79.899 Other long term (current) drug therapy
CPT/HCPCS: 36415; 70450; 71045; 80053; 81001; 82140; 82550; 84484; 85025; 85610; 86140; 93005; 99285; J7040; 80320; G0480

== ENCOUNTER 2022-06-07 12:33 | Emergency (ER) | payer MEDICARE ==
[2022-06-08] MEDS ORDERED: MORPHINE 2 MG/1 ML INJ IM ONE (03:30)
[2022-06-08 03:49] VITALS: BP 173/110
--- NOTE | 2022-06-08 04:06 | Emergency Department Report ---
ED Fall HPI - General Chief Complaint: Extremity Injury, Lower Stated Complaint: FALL/LEFT KNEE PAIN Time Seen by Provider: 06/08/22 01:59 Source: patient, EMS Mode of arrival: Stretcher - History of Present Illness Initial Comments: 87 yo F with h/o dementia brought in with a fall associated with left knee pain that started shortly after the fall tonight. Putting weight on the knee worsen pain. No other modifying or associated factors reported. - Related Data Previous Rx's Medication Instructions Recorded Last Taken Type Acetaminophen [Acetaminophen TAB] 650 mg PO Q6H PRN #15 tablet 11/17/18 Unknown Rx Aspirin [Aspirin EC] 81 mg PO QDAY #30 tab 11/17/18 Unknown Rx Pantoprazole [Protonix TAB] 40 mg PO QDAY #30 tablet 11/17/18 Unknown Rx traMADoL [Ultram 50 MG tab] 50 mg PO Q6HR PRN #14 tablet 11/19/18 Unknown Rx Hydralazine HCl 50 mg PO BID #60 tablet 06/15/19 Unknown Rx amLODIPine 10 mg PO QDAY #30 tablet 06/15/19 Unknown Rx Allergies Allergy/AdvReac Type Severity Reaction Status Date / Time No Known Allergies Allergy Verified 06/07/22 12:41 ED Review of Systems ROS: Stated complaint: FALL/LEFT KNEE PAIN Other details as noted in HPI Comment: All other systems reviewed and negative Musculoskeletal: arthralgia (left knee pain ), myalgia ED Past Medical Hx - Past Medical History Hx Hypertension: Yes Hx CVA: Yes (2015) Hx Heart Attack/AMI: No Hx Congestive Heart Failure: No Hx Liver Disease: No Hx Renal Disease: No Hx Sickle Cell Disease: No Hx Arthritis: Yes Hx Headaches / Migraines: Yes Hx Seizures: No Hx Asthma: No Hx Dementia: Yes Additional medical history: Alzheimer's - Social History Smoking Status: Unknown if ever smoked - Medications Home Medications: Home Medications Medication Instructions Recorded Confirmed Last Taken Type Acetaminophen [Acetaminophen TAB] 650 mg PO Q6H PRN #15 tablet 11/17/18 Unknown Rx Aspirin [Aspirin EC] 81 mg PO QDAY #30 tab 11/17/18 Unknown Rx Pantoprazole [Protonix TAB] 40 mg PO QDAY #30 tablet 11/17/18 Unknown Rx traMADoL [Ultram 50 MG tab] 50 mg PO Q6HR PRN #14 tablet 11/19/18 Unknown Rx Hydralazine HCl 50 mg PO BID #60 tablet 06/15/19 Unknown Rx amLODIPine 10 mg PO QDAY #30 tablet 06/15/19 Unknown Rx ED Physical Exam - General Limitations: No Limitations General appearance: alert, in no apparent distress - Head Head exam: Present: normal inspection - Eye Eye exam: Present: normal appearance Pupils: Present: normal accommodation - ENT ENT exam: Present: normal exam, normal orophraynx, mucous membranes moist - Neck Neck exam: Present: normal inspection, full ROM. Absent: tenderness - Respiratory Respiratory exam: Present: normal lung sounds bilaterally. Absent: respiratory distress, accessory muscle use - Cardiovascular Cardiovascular Exam: Present: regular rate, normal rhythm, normal heart sounds - GI/Abdominal GI/Abdominal exam: Present: soft, normal bowel sounds. Absent: distended, tenderness - Extremities Exam Extremities exam: Present: normal inspection, tenderness (left knee lateral aspect ), normal capillary refill. Absent: pedal edema - Back Exam Back exam: Absent: tenderness - Neurological Exam Neurological exam: Present: alert, oriented X3 - Psychiatric Psychiatric exam: Present: normal affect, normal mood - Skin Skin exam: Present: warm, normal color ED Course Vital Signs 06/07/22 06/08/22 06/08/22 12:39 02:29 02:30 Temperature 98.3 F Pulse Rate 73 67 61 Respiratory 18 20 11 L Rate Blood Pressure Blood Pressure 118/60 [Left] O2 Sat by Pulse 98 100 Oximetry 06/08/22 06/08/22 06/08/22 02:38 02:46 03:00 Temperature 98.1 F Pulse Rate 67 67 65 Respiratory 20 13 15 Rate Blood Pressure 146/97 122/57 Blood Pressure 170/123 [Left] O2 Sat by Pulse 100 99 87 Oximetry 06/08/22 06/08/22 06/08/22 03:16 03:30 03:45 Temperature 98.9 F Pulse Rate 84 72 83 Respiratory 14 19 19 Rate Blood Pressure 134/101 133/85 140/110 Blood Pressure [Left] O2 Sat by Pulse 95 99 91 Oximetry ED Medical Decision Making - Radiology Data LEFT HIP, 2 VIEW INDICATION / CLINICAL INFORMATION: Fall. COMPARISON: None available. FINDINGS: The left hip appears intact. No fracture or dislocation of the left hip or left hemipelvis. 3 screws are present within the right hip. Hardware is intact. IMPRESSION: No acute fracture or dislocation involving the left hip or pelvis. Tib/Fib -- noted with Chondrocalcinosis with no fx or dislocation - Medical Decision Making fall associated with left knee pain -- will go ahead and order xray to rule out fx or dislocation-- while waiting for above given morphine 2 mg x 1-- Critical care attestation.: If time is entered above; I have spent that time in minutes in the direct care of this critically ill patient, excluding procedure time. ED Disposition Clinical Impression: Left lateral knee pain Fall Qualifiers: Encounter type: initial encounter Qualified Code(s): W19.XXXA - Unspecified fall, initial encounter Disposition: HOME / SELF CARE / HOMELESS Is pt being admited?: No Does the pt Need Aspirin: No Condition: Stable Instructions: How to Use Cold Therapy, [id number], Acute Knee Pain, Adult, [id number] Additional Instructions: Is okay to take Tylenol/ every 6-8 hours as needed for pain Please call and follow up with your doctor in 3-5 days for progress Please do not hesitate to call or return to ED if your symptoms worsen Referrals: BRUCE SAUCEDO MD [Primary Care Provider] - 3-5 Days Time of Disposition: 06:22
--- NOTE | 2022-06-08 04:06 | XRay Report ---
LEFT HIP, 2 VIEW INDICATION / CLINICAL INFORMATION: Fall. COMPARISON: None available. FINDINGS: The left hip appears intact. No fracture or dislocation of the left hip or left hemipelvis. 3 screws are present within the right hip. Hardware is intact. IMPRESSION: No acute fracture or dislocation involving the left hip or pelvis. Signer Name: Zainab Rosado MD Signed: 06/08/2022 4:02 AM Workstation Name: [id number]
--- NOTE | 2022-06-08 04:07 | XRay Report ---
LEFT TIBIA/FIBULA 4 VIEWS INDICATION / CLINICAL INFORMATION: Fall. COMPARISON: None available. FINDINGS: The tibia and fibula are intact and without fracture or dislocation. Incidentally noted is chondrocalcinosis throughout the medial and lateral meniscus of the knee. IMPRESSION: 1. No fracture of the tibia or fibula. 2. Chondrocalcinosis of the knee. Signer Name: Zainab Rosado MD Signed: 06/08/2022 4:03 AM Workstation Name: [id number]
[2022-06-08] MEDS ORDERED: ZIPRASIDONE MESYLATE 20 MG VIAL IM ONE (04:19)
== END 2022-06-08 11:00 | disposition home or self-care (01) ==
LOC: ED 12:33
DX: M25.562 Pain in left knee (principal); I10 Essential (primary) hypertension; M19.90 Unspecified osteoarthritis, unspecified site; G43.909 Migraine, unspecified, not intractable, without status migrainosus; Z86.73 Personal history of transient ischemic attack (TIA), and cerebral infarction without residual deficits; F03.90 Unspecified dementia, unspecified severity, without behavioral disturbance, psychotic disturbance, mood disturbance, and anxiety
CPT/HCPCS: 73502; 73590; 96372; 99284; J2270; J3486